=== PATIENT | male | born 1960 | race Hispanic/Latino ===

== ENCOUNTER 2020-12-18 23:32 | Emergency (ER) | payer MEDICARE, SELFPAY ==
[2020-12-19] MEDS ORDERED: hydrOXYzine Pamoate 25 mg Capsule ONE (00:36)
[2020-12-19] MEDS ORDERED: Aspirin Chewable 81 MG TAB ONE (00:36)
[2020-12-19] MEDS ORDERED: Ondansetron ODT 4 MG TAB ONE (00:36)
[2020-12-19 00:50] LABS: #Basophils 0.1 thou/uL (0.0-0.2); #Lymphocytes 2.2 thou/uL (1.20-3.40); #Monocytes 0.8 thou/uL (0.11-0.59); #Neutrophils 2.8 thou/uL (1.40-6.50); %Basophils 1.1 % (0.0-1.0); %Eosinophils 0.4 % (0.0-10.0); %Lymphocytes 36.8 % (21.0-51.0); %Monocytes 13.6 % (0.0-10.0); %Neutrophils 48.1 % (42.0-75.0); Hemoglobin 12.7 g/dL (14.0-18.0); Mean Corpuscular HGB CONC 32.9 g/dL (32.0-36.0); Mean Corpuscular Hemoglobin 27.8 pg (27.0-31.0); Mean Corpuscular Volume 84.6 fL (78.0-98.0); Mean Platelet Volume 6.8 fL (7.4-10.4); Platelet Count 302 thou/uL (130-400); RBC Distribution Width 15.7 % (11.5-14.5); Red Blood Cell (RBC) Count 4.56 mill/uL (4.70-6.10); White Blood Cell (WBC) Count 5.8 thou/uL (4.8-10.8)
[2020-12-19 01:11] LABS: ALT (SGPT) 19 U/L (8-55); AST (SGOT) 32 U/L (5-34); Alkaline Phosphatase 106 U/L (40-110); Anion Gap 15 mmol/L (10-20); BUN (Urea Nitrogen) 8 mg/dL (8.4-25.7); Bilirubin, Total 0.6 mg/dL (0.2-1.2); Calc. Creatinine Clearance 0 mL/min (70-130); Calcium 8.3 mg/dL (7.8-10.44); Carbon Dioxide 24 mmol/L (22-29); Chloride 102 mmol/L (98-107); Globulin 3.5 g/dL (2.4-3.5); Glucose 110 mg/dL (70-105); Potassium 3.6 mmol/L (3.5-5.1); Protein, Total 7.5 g/dL (6.0-8.3); Sodium 137 mmol/L (136-145)
== END 2020-12-19 01:38 | disposition home or self-care (01) ==
LOC: ERS 23:32
DX: F41.9 Anxiety disorder, unspecified (principal); B20 Human immunodeficiency virus [HIV] disease; E78.5 Hyperlipidemia, unspecified; I10 Essential (primary) hypertension; F17.210 Nicotine dependence, cigarettes, uncomplicated
CPT/HCPCS: 36415; 71045; 80053; 84484; 85025; 93005; Q0162; Q0177

== ENCOUNTER 2020-12-19 10:43 | Emergency (ER) | payer MEDICARE ==
[2020-12-19] MEDS ORDERED: Ondansetron ODT 4 MG TAB ONE (10:59)
[2020-12-19] MEDS ORDERED: Lorazepam 1 MG TAB ONE (11:25)
== END 2020-12-19 13:00 | disposition home or self-care (01) ==
LOC: ERS 10:43
DX: F41.9 Anxiety disorder, unspecified (principal); Z60.9 Problem related to social environment, unspecified; B20 Human immunodeficiency virus [HIV] disease; E78.5 Hyperlipidemia, unspecified; I10 Essential (primary) hypertension; F17.210 Nicotine dependence, cigarettes, uncomplicated; Z79.899 Other long term (current) drug therapy
CPT/HCPCS: 36415; 71045; 80053; 84484; 85025; 93005; 99283; Q0162; Q0177

== ENCOUNTER 2022-04-21 07:58 | Outpatient (CLI) | payer MEDICARE | END 2022-04-21 07:59 | disposition home or self-care (01) | LOC: BICRAD 07:58 | PROVIDERS: ATTEND Family Medicine | DX: S42.001D Fracture of unspecified part of right clavicle, subsequent encounter for fracture with routine healing (principal); Z87.81 Personal history of (healed) traumatic fracture ==

== ENCOUNTER 2022-04-30 14:37 | Emergency (ER) | payer MEDICARE ==
[2022-04-30] MEDS ORDERED: Ondansetron ODT 4 MG TAB ONE (15:31)
[2022-04-30] MEDS ORDERED: Lorazepam 2 MG/ML VIAL ONE (15:31)
== END 2022-04-30 15:49 | disposition home or self-care (01) ==
LOC: ERS 14:37
DX: F41.9 Anxiety disorder, unspecified (principal); R11.0 Nausea; B20 Human immunodeficiency virus [HIV] disease; I10 Essential (primary) hypertension; F17.210 Nicotine dependence, cigarettes, uncomplicated; E78.5 Hyperlipidemia, unspecified; Z79.899 Other long term (current) drug therapy
CPT/HCPCS: 96372; 99283; J2060; Q0162

== ENCOUNTER 2022-06-04 07:10 | Day surgery (SDC) | payer MEDICARE ==
[2022-06-04] MEDS ORDERED: Ondansetron PF 4 MG/2 ML Vial ONE ×2 (07:33→11:15)
[2022-06-04] MEDS ORDERED: hydrOXYzine 25 MG TAB ONE (07:34)
[2022-06-04 07:48] LABS: #Eosinphils 0.2 thou/uL (0.0-0.7); #Lymphocytes 1.6 thou/uL (1.20-3.40); #Monocytes 0.8 thou/uL (0.11-0.59); #Neutrophils 8.2 thou/uL (1.40-6.50); %Basophils 0.3 % (0.0-1.0); %Eosinophils 1.9 % (0.0-10.0); %Lymphocytes 14.4 % (21.0-51.0); %Monocytes 7.3 % (0.0-10.0); Hemoglobin 14.8 g/dL (14.0-18.0); Mean Corpuscular HGB CONC 32.7 g/dL (32.0-36.0); Mean Corpuscular Hemoglobin 33.9 pg (27.0-31.0); Mean Platelet Volume 6.9 fL (7.4-10.4); Platelet Count 254 thou/uL (130-400); RBC Distribution Width 12.1 % (11.5-14.5); Red Blood Cell (RBC) Count 4.35 mill/uL (4.70-6.10); White Blood Cell (WBC) Count 10.8 thou/uL (4.8-10.8)
[2022-06-04 08:06] LABS: ALT (SGPT) 12 U/L (8-55); AST (SGOT) 14 U/L (5-34); Albumin 3.6 g/dL (3.5-5.0); Alkaline Phosphatase 49 U/L (40-110); Anion Gap 10 mmol/L (10-20); BUN (Urea Nitrogen) 16 mg/dL (8.4-25.7); Bilirubin, Total 0.3 mg/dL (0.2-1.2); Calc. Creatinine Clearance 0 mL/min (70-130); Carbon Dioxide 31 mmol/L (22-29); Chloride 101 mmol/L (98-107); Estimated GFR 103; Globulin 2.5 g/dL (2.4-3.5); Glucose 105 mg/dL (70-105); Lipase 631 U/L (8-78); Protein, Total 6.1 g/dL (6.0-8.3); Sodium 138 mmol/L (136-145)
[2022-06-04] MEDS ORDERED: fentaNYL Citrate/PF 100 MCG/2 ML SYRINGE ONE (10:11)
[2022-06-04] MEDS ORDERED: Bupivacaine PF 0.5% 30 ML VIAL ONE (10:15)
[2022-06-04] MEDS ORDERED: Lidocaine 1% w/Epinephrine 1:100K 20 ML VIAL ONE (10:15)
[2022-06-04] MEDS ORDERED: Levofloxacin 500 mg/D5W 100 ml Premix Bag ONE (10:35)
[2022-06-04 11:08] LABS: SARS-CoV-2 NAA Rapid Test Not Detected (NotDetected)
[2022-06-04] MEDS ORDERED: Iopamidol 30 ML ONE ×2 (11:08→12:19)
[2022-06-04] MEDS ORDERED: Midazolam HCl 2 mg/2 ml Vial ONE (11:09)
[2022-06-04] MEDS ORDERED: Phenylephrine 10 MG/ML VIAL ONE (11:15)
[2022-06-04] MEDS ORDERED: Rocuronium Bromide 10 MG/ML (10ML VIAL) ONE (11:15)
[2022-06-04] MEDS ORDERED: Esmolol 100 MG/10 ML VIAL ONE (11:15)
[2022-06-04] MEDS ORDERED: Ketorolac Tromethamine 30 MG/ML VIAL ONE (11:15)
[2022-06-04] MEDS ORDERED: Lidocaine 1% PF 5 ML VIAL ONE (11:15)
[2022-06-04] MEDS ORDERED: PROPOFOL 200 MG/20 ML VIAL ONE (11:15)
[2022-06-04] MEDS ORDERED: Naloxone HCl 0.4 mg/ml Vial ONE (12:56)
[2022-06-04] MEDS ORDERED: Iopamidol-370 76% 500 ML 1 ML ONE (13:27)
[2022-06-04] MEDS ORDERED: Fentanyl 100 MCG/2 ML VIAL ONE (13:51)
== END 2022-06-04 15:02 | disposition home or self-care (01) ==
LOC: ERS 07:10 → SDC/OP 11:15
PROVIDERS: ATTEND Specialist
PROC: 0FT44ZZ Resection of Gallbladder, Percutaneous Endoscopic Approach (ICD-10-PCS; principal; 2022-06-04)
DX: K80.12 Calculus of gallbladder with acute and chronic cholecystitis without obstruction (principal); K85.90 Acute pancreatitis without necrosis or infection, unspecified; F17.210 Nicotine dependence, cigarettes, uncomplicated; I10 Essential (primary) hypertension; Z20.822 Contact with and (suspected) exposure to COVID-19; Z21 Asymptomatic human immunodeficiency virus [HIV] infection status; Z88.2 Allergy status to sulfonamides
CPT/HCPCS: 47562; 71045; 74177; 76000; 76705; 80053; 83690; 84484; 85025; 93005; C1713; J1610; U0002; 88304; J1885; J1956; J2250; J2310; J2370; J2405; J2704; J3010; Q9967; S0020

== ENCOUNTER 2022-06-08 08:25 | Emergency (ER) | payer MEDICARE ==
[2022-06-08] MEDS ORDERED: Lorazepam 1 MG TAB ONE ×2 (08:58→10:51)
[2022-06-08 09:06] LABS: #Eosinphils 0.1 thou/uL (0.0-0.7); #Lymphocytes 1.8 thou/uL (1.20-3.40); #Monocytes 0.9 thou/uL (0.11-0.59); #Neutrophils 7.9 thou/uL (1.40-6.50); %Basophils 0.1 % (0.0-1.0); %Eosinophils 1.3 % (0.0-10.0); %Lymphocytes 16.4 % (21.0-51.0); %Monocytes 8.7 % (0.0-10.0); %Neutrophils 73.5 % (42.0-75.0); Hemoglobin 12.9 g/dL (14.0-18.0); Mean Corpuscular Hemoglobin 33.7 pg (27.0-31.0); Mean Platelet Volume 7.2 fL (7.4-10.4); Platelet Count 231 thou/uL (130-400); RBC Distribution Width 12.2 % (11.5-14.5); Red Blood Cell (RBC) Count 3.82 mill/uL (4.70-6.10); White Blood Cell (WBC) Count 10.7 thou/uL (4.8-10.8)
[2022-06-08 09:14] LABS: ALT (SGPT) 36 U/L (8-55); AST (SGOT) 24 U/L (5-34); Albumin 3.6 g/dL (3.5-5.0); Alkaline Phosphatase 51 U/L (40-110); Anion Gap 13 mmol/L (10-20); BUN (Urea Nitrogen) 12 mg/dL (8.4-25.7); Bilirubin, Total 0.6 mg/dL (0.2-1.2); Calc. Creatinine Clearance 0 mL/min (70-130); Calcium 9.2 mg/dL (7.8-10.44); Carbon Dioxide 31 mmol/L (22-29); Chloride 97 mmol/L (98-107); Estimated GFR 103; Globulin 2.9 g/dL (2.4-3.5); Glucose 92 mg/dL (70-105); Lipase 16 U/L (8-78); Potassium 4.2 mmol/L (3.5-5.1); Protein, Total 6.5 g/dL (6.0-8.3); Sodium 137 mmol/L (136-145)
[2022-06-08 10:02] LABS: SARS-CoV-2 NAA Rapid Test Not Detected (NotDetected)
[2022-06-08] MEDS ORDERED: Ketorolac Tromethamine 30 MG/ML VIAL ONE (10:51)
[2022-06-08] MEDS ORDERED: Iopamidol-370 76% 500 ML 1 ML ONE (11:27)
== END 2022-06-08 12:10 | disposition home or self-care (01) ==
LOC: ERS 08:25
DX: J02.9 Acute pharyngitis, unspecified (principal); B37.0 Candidal stomatitis; R53.81 Other malaise; I10 Essential (primary) hypertension; E78.5 Hyperlipidemia, unspecified; F17.210 Nicotine dependence, cigarettes, uncomplicated; Z21 Asymptomatic human immunodeficiency virus [HIV] infection status; Z20.822 Contact with and (suspected) exposure to COVID-19; Z79.899 Other long term (current) drug therapy
CPT/HCPCS: 0240U; 70450; 70491; 71045; 80053; 83605; 83690; 84484; 85025; 87040; 87081; 87430; 93005; 36415; 96374; J1885; Q9967

== ENCOUNTER 2022-06-13 12:20 | Emergency (ER) | payer MEDICARE ==
[2022-06-13 13:04] LABS: #Eosinphils 0.1 thou/uL (0.0-0.7); #Lymphocytes 1.8 thou/uL (1.20-3.40); #Monocytes 0.7 thou/uL (0.11-0.59); #Neutrophils 6.7 thou/uL (1.40-6.50); %Basophils 0.3 % (0.0-1.0); %Eosinophils 0.8 % (0.0-10.0); %Lymphocytes 19.9 % (21.0-51.0); Hemoglobin 14.5 g/dL (14.0-18.0); Mean Corpuscular HGB CONC 33.5 g/dL (32.0-36.0); Mean Corpuscular Hemoglobin 34.4 pg (27.0-31.0); Mean Platelet Volume 6.8 fL (7.4-10.4); Platelet Count 283 thou/uL (130-400); Red Blood Cell (RBC) Count 4.22 mill/uL (4.70-6.10); White Blood Cell (WBC) Count 9.3 thou/uL (4.8-10.8)
[2022-06-13 13:19] LABS: ALT (SGPT) 15 U/L (8-55); AST (SGOT) 14 U/L (5-34); Alkaline Phosphatase 63 U/L (40-110); Anion Gap 14 mmol/L (10-20); BUN (Urea Nitrogen) 12 mg/dL (8.4-25.7); Bilirubin, Total 0.3 mg/dL (0.2-1.2); Calc. Creatinine Clearance 0 mL/min (70-130); Carbon Dioxide 25 mmol/L (22-29); Chloride 99 mmol/L (98-107); Estimated GFR 104; Globulin 3.1 g/dL (2.4-3.5); Glucose 95 mg/dL (70-105); Lipase 34 U/L (8-78); Potassium 4.2 mmol/L (3.5-5.1); Protein, Total 7.1 g/dL (6.0-8.3); Sodium 134 mmol/L (136-145)
[2022-06-13] MEDS ORDERED: Midazolam HCl 2 mg/2 ml Vial ONE (14:16)
[2022-06-13] MEDS ORDERED: Ketorolac Tromethamine 30 MG/ML VIAL ONE (14:16)
[2022-06-13 14:36] LABS: Magnesium 1.7 mg/dL (1.6-2.6)
[2022-06-13] MEDS ORDERED: Ondansetron ODT 4 MG TAB ONE (14:58)
== END 2022-06-13 15:00 | disposition home or self-care (01) ==
LOC: ERS 12:20
DX: R11.2 Nausea with vomiting, unspecified (principal); F41.9 Anxiety disorder, unspecified; G89.29 Other chronic pain; R07.89 Other chest pain; I10 Essential (primary) hypertension; E78.5 Hyperlipidemia, unspecified; F17.210 Nicotine dependence, cigarettes, uncomplicated; Z21 Asymptomatic human immunodeficiency virus [HIV] infection status; Z79.899 Other long term (current) drug therapy
CPT/HCPCS: 71045; 80053; 83690; 83735; 84484; 85025; 93005; 96374; 96375; J1885; J2250; Q0162

== ENCOUNTER 2022-07-05 16:17 | Emergency (ER) | payer MEDICARE ==
[~2022-07-05 16:17] MED LIST: Iopamidol 370 76% 100 ML VIAL ONE
[2022-07-05 17:00] LABS: #Eosinphils 0.3 thou/uL (0.0-0.7); #Monocytes 0.7 thou/uL (0.11-0.59); #Neutrophils 3.2 thou/uL (1.40-6.50); %Basophils 0.7 % (0.0-1.0); %Eosinophils 4.6 % (0.0-10.0); %Neutrophils 51.6 % (42.0-75.0); Hemoglobin 12.7 g/dL (14.0-18.0); Mean Corpuscular HGB CONC 32.3 g/dL (32.0-36.0); Mean Corpuscular Hemoglobin 33.3 pg (27.0-31.0); Mean Platelet Volume 6.7 fL (7.4-10.4); Platelet Count 237 thou/uL (130-400); Red Blood Cell (RBC) Count 3.81 mill/uL (4.70-6.10); White Blood Cell (WBC) Count 6.2 thou/uL (4.8-10.8)
[2022-07-05] MEDS ORDERED: Ondansetron PF 4 MG/2 ML Vial ONE ×2 (17:03→22:57)
[2022-07-05] MEDS ORDERED: Aspirin Chewable 81 MG TAB ONE (17:03)
[2022-07-05 17:20] LABS: ALT (SGPT) 7 U/L (8-55); AST (SGOT) 12 U/L (5-34); Albumin 3.8 g/dL (3.5-5.0); Alkaline Phosphatase 56 U/L (40-110); Anion Gap 13 mmol/L (10-20); BUN (Urea Nitrogen) 20 mg/dL (8.4-25.7); Bilirubin, Total 0.2 mg/dL (0.2-1.2); Calc. Creatinine Clearance 0 mL/min (70-130); Carbon Dioxide 30 mmol/L (22-29); Chloride 97 mmol/L (98-107); Estimated GFR 95; Globulin 2.6 g/dL (2.4-3.5); Glucose 115 mg/dL (70-105); Lipase 110 U/L (8-78); Protein, Total 6.4 g/dL (6.0-8.3); Sodium 136 mmol/L (136-145)
[2022-07-05] MEDS ORDERED: hydrOXYzine 25 MG TAB ONE (18:31)
== END 2022-07-05 23:02 | disposition home or self-care (01) ==
LOC: ERS 16:17
DX: K44.9 Diaphragmatic hernia without obstruction or gangrene (principal); F41.9 Anxiety disorder, unspecified; I10 Essential (primary) hypertension; E78.5 Hyperlipidemia, unspecified; F17.210 Nicotine dependence, cigarettes, uncomplicated; Z21 Asymptomatic human immunodeficiency virus [HIV] infection status; Z79.899 Other long term (current) drug therapy
CPT/HCPCS: 36415; 71045; 74177; 80053; 83690; 84484; 85025; 93005; 94760; 96374; 96376; J2405; Q9967

== ENCOUNTER 2022-07-18 08:37 | Emergency (ER) | payer MEDICARE ==
[2022-07-18 09:48] LABS: #Lymphocytes 1.1 thou/uL (1.20-3.40); #Monocytes 0.4 thou/uL (0.11-0.59); #Neutrophils 9.2 thou/uL (1.40-6.50); %Basophils 0.3 % (0.0-1.0); %Eosinophils 0.1 % (0.0-10.0); %Lymphocytes 10.5 % (21.0-51.0); %Monocytes 4.1 % (0.0-10.0); Hemoglobin 14.2 g/dL (14.0-18.0); Mean Corpuscular Hemoglobin 34.6 pg (27.0-31.0); Mean Platelet Volume 6.9 fL (7.4-10.4); Platelet Count 322 thou/uL (130-400); RBC Distribution Width 11.9 % (11.5-14.5); Red Blood Cell (RBC) Count 4.11 mill/uL (4.70-6.10); White Blood Cell (WBC) Count 10.8 thou/uL (4.8-10.8)
[2022-07-18] MEDS ORDERED: Lorazepam 1 MG TAB ONE (10:00)
[2022-07-18 10:01] LABS: ALT (SGPT) 11 U/L (8-55); AST (SGOT) 19 U/L (5-34); Acetaminophen Less than 10.0 mcg/mL (10.0-30.0); Albumin 4.5 g/dL (3.5-5.0); Alcohol Less than 10 mg/dL (Less than 10); Alkaline Phosphatase 54 U/L (40-110); Anion Gap 19 mmol/L (10-20); BUN (Urea Nitrogen) 8 mg/dL (8.4-25.7); Bilirubin, Total 0.3 mg/dL (0.2-1.2); Calc. Creatinine Clearance 0 mL/min (70-130); Calcium 9.5 mg/dL (7.8-10.44); Carbon Dioxide 22 mmol/L (22-29); Chloride 93 mmol/L (98-107); Estimated GFR 87; Globulin 3.4 g/dL (2.4-3.5); Glucose 112 mg/dL (70-105); Lipase 33 U/L (8-78); Magnesium 1.6 mg/dL (1.6-2.6); Potassium 3.1 mmol/L (3.5-5.1); Protein, Total 7.9 g/dL (6.0-8.3); Salicylate 10.9 mg/dL (15.0-30.0); Sodium 131 mmol/L (136-145)
[2022-07-18] MEDS ORDERED: Aspirin Chewable 81 MG TAB ONE (10:01)
[2022-07-18] MEDS ORDERED: Ondansetron PF 4 MG/2 ML Vial ONE (10:33)
[2022-07-18 10:58] LABS: Bacteria/HPF None Seen HPF (None Seen); Bilirubin Negative (Negative); Blood, Urine Negative (Negative); Clarity Clear (Clear); Glucose, Urine (Dipstick) Normal (Negative); Ketone, Urine Negative (Negative); Leukocyte Negative Leu/uL (Negative); Nitrite Negative (Negative); Protein, Urine (Dipstick) Negative (Neg-Trace); RBC/HPF None Seen HPF (0-3); Specific Gravity, Urine 1.014 (1.002-1.036); Squamous Epithelial None Seen HPF (0-3); Urobilinogen Normal mg/dL (Less than 2); WBC/HPF 0-3 HPF (0-3)
[2022-07-18 11:04] LABS: Amphetamine Not Detected (NotDetected); Barbiturates Screen Not Detected (NotDetected); Benzodiazepine Screen Not Detected (NotDetected); Cocaine Metabolite Screen Not Detected (NotDetected); Methadone Not Detected (NotDetected); Methamphetamine Not Detected (NotDetected); Opiate Screen Not Detected (NotDetected); Oxycodone Screen Not Detected (NotDetected); Phencyclidine (PCP) Not Detected (NotDetected); THC/Cannabinoid Screen Not Detected (NotDetected); Tricyclic Screen Not Detected (NotDetected)
[2022-07-18] MEDS ORDERED: Prochlorperazine Maleate 5 MG TAB ONE ×2 (12:48→12:50)
== END 2022-07-18 14:34 | disposition home or self-care (01) ==
LOC: ERS 08:37
DX: F41.9 Anxiety disorder, unspecified (principal); R11.2 Nausea with vomiting, unspecified; R07.9 Chest pain, unspecified; E78.5 Hyperlipidemia, unspecified; B20 Human immunodeficiency virus [HIV] disease; I10 Essential (primary) hypertension; F17.210 Nicotine dependence, cigarettes, uncomplicated; Z79.899 Other long term (current) drug therapy
CPT/HCPCS: 80053; 80306; 80307; 81001; 83690; 83735; 83880; 84484; 85025; 93005; 96361; 96374; J2405; Q0164

== ENCOUNTER 2022-07-20 17:37 | Emergency (ER) | payer MEDICARE ==
[2022-07-20] MEDS ORDERED: Diazepam 5 MG TAB ONE (18:22)
[2022-07-20] MEDS ORDERED: Ondansetron ODT 4 MG TAB ONE (18:22)
[2022-07-20 18:27] LABS: #Lymphocytes 1.8 thou/uL (1.20-3.40); #Monocytes 0.8 thou/uL (0.11-0.59); #Neutrophils 5.5 thou/uL (1.40-6.50); %Basophils 0.1 % (0.0-1.0); %Eosinophils 0.4 % (0.0-10.0); %Monocytes 9.3 % (0.0-10.0); %Neutrophils 68.3 % (42.0-75.0); Hemoglobin 13.7 g/dL (14.0-18.0); Mean Corpuscular HGB CONC 34.8 g/dL (32.0-36.0); Mean Corpuscular Hemoglobin 34.4 pg (27.0-31.0); Mean Corpuscular Volume 98.9 fL (78.0-98.0); Mean Platelet Volume 6.4 fL (7.4-10.4); Platelet Count 358 thou/uL (130-400); RBC Distribution Width 11.9 % (11.5-14.5); Red Blood Cell (RBC) Count 3.97 mill/uL (4.70-6.10); White Blood Cell (WBC) Count 8.1 thou/uL (4.8-10.8)
[2022-07-20 18:47] LABS: ALT (SGPT) 11 U/L (8-55); AST (SGOT) 20 U/L (5-34); Alkaline Phosphatase 52 U/L (40-110); Anion Gap 18 mmol/L (10-20); BUN (Urea Nitrogen) 12 mg/dL (8.4-25.7); Bilirubin, Total 0.4 mg/dL (0.2-1.2); Calc. Creatinine Clearance 0 mL/min (70-130); Calcium 9.1 mg/dL (7.8-10.44); Carbon Dioxide 21 mmol/L (22-29); Chloride 93 mmol/L (98-107); Estimated GFR 101; Globulin 3.1 g/dL (2.4-3.5); Glucose 93 mg/dL (70-105); Lipase 21 U/L (8-78); Potassium 3.2 mmol/L (3.5-5.1); Protein, Total 7.1 g/dL (6.0-8.3); Sodium 129 mmol/L (136-145)
== END 2022-07-20 19:50 | disposition home or self-care (01) ==
LOC: ERS 17:37
DX: F41.9 Anxiety disorder, unspecified (principal); E86.1 Hypovolemia; E86.0 Dehydration; F17.210 Nicotine dependence, cigarettes, uncomplicated
CPT/HCPCS: 36415; 71045; 80053; 83690; 84443; 84484; 93005; 96360; Q0162

== ENCOUNTER 2022-07-27 10:23 | Emergency (ER) | payer MEDICARE ==
[~2022-07-27 10:23] MED LIST changes: -Iopamidol 370 76% 100 ML VIAL ONE; +Iopamidol-370 76% 500 ML 1 ML ONE
[2022-07-27] MEDS ORDERED: Lorazepam 1 MG TAB ONE (10:52)
[2022-07-27 11:20] LABS: #Eosinphils 0.1 thou/uL (0.0-0.7); #Lymphocytes 1.3 thou/uL (1.20-3.40); #Monocytes 0.7 thou/uL (0.11-0.59); #Neutrophils 5.1 thou/uL (1.40-6.50); %Basophils 0.2 % (0.0-1.0); %Eosinophils 0.8 % (0.0-10.0); %Lymphocytes 18.4 % (21.0-51.0); %Monocytes 10.2 % (0.0-10.0); %Neutrophils 70.4 % (42.0-75.0); Hemoglobin 14.5 g/dL (14.0-18.0); Mean Corpuscular Hemoglobin 33.9 pg (27.0-31.0); Mean Corpuscular Volume 99.9 fL (78.0-98.0); Mean Platelet Volume 6.3 fL (7.4-10.4); Platelet Count 361 thou/uL (130-400); RBC Distribution Width 11.6 % (11.5-14.5); Red Blood Cell (RBC) Count 4.28 mill/uL (4.70-6.10); White Blood Cell (WBC) Count 7.3 thou/uL (4.8-10.8)
[2022-07-27 11:37] LABS: ALT (SGPT) 11 U/L (8-55); AST (SGOT) 22 U/L (5-34); Albumin 4.2 g/dL (3.5-5.0); Alkaline Phosphatase 58 U/L (40-110); Anion Gap 17 mmol/L (10-20); BUN (Urea Nitrogen) 7 mg/dL (8.4-25.7); Bilirubin, Total 0.9 mg/dL (0.2-1.2); Calc. Creatinine Clearance 0 mL/min (70-130); Calcium 9.2 mg/dL (7.8-10.44); Carbon Dioxide 24 mmol/L (22-29); Chloride 91 mmol/L (98-107); Estimated GFR 102; Globulin 2.8 g/dL (2.4-3.5); Glucose 118 mg/dL (70-105); Lipase 18 U/L (8-78); Potassium 3.9 mmol/L (3.5-5.1); Sodium 128 mmol/L (136-145)
== END 2022-07-27 12:35 | disposition home or self-care (01) ==
LOC: ERS 10:23
DX: E87.1 Hypo-osmolality and hyponatremia (principal); R11.2 Nausea with vomiting, unspecified; R10.819 Abdominal tenderness, unspecified site; I10 Essential (primary) hypertension
CPT/HCPCS: 71045; 74177; 80053; 83690; 83880; 84484; 85025; 93005; Q9967

== ENCOUNTER 2022-07-30 18:16 | Emergency (ER) | payer MEDICARE ==
[2022-07-30] MEDS ORDERED: Lorazepam 1 MG TAB ONE (18:37)
[2022-07-30 18:59] LABS: #Basophils 0.1 thou/uL (0.0-0.2); #Eosinphils 0.2 thou/uL (0.0-0.7); #Lymphocytes 1.4 thou/uL (1.20-3.40); #Monocytes 0.8 thou/uL (0.11-0.59); #Neutrophils 3.7 thou/uL (1.40-6.50); %Basophils 0.9 % (0.0-1.0); %Eosinophils 2.7 % (0.0-10.0); %Lymphocytes 23.1 % (21.0-51.0); %Monocytes 12.5 % (0.0-10.0); %Neutrophils 60.8 % (42.0-75.0); Hemoglobin 14.1 g/dL (14.0-18.0); Mean Corpuscular HGB CONC 33.6 g/dL (32.0-36.0); Mean Platelet Volume 6.5 fL (7.4-10.4); Platelet Count 314 thou/uL (130-400); RBC Distribution Width 11.7 % (11.5-14.5); Red Blood Cell (RBC) Count 4.16 mill/uL (4.70-6.10); White Blood Cell (WBC) Count 6.1 thou/uL (4.8-10.8)
[2022-07-30] MEDS ORDERED: Ondansetron PF 4 MG/2 ML Vial ONE (19:03)
[2022-07-30 19:14] LABS: ALT (SGPT) 10 U/L (8-55); AST (SGOT) 13 U/L (5-34); Albumin 4.1 g/dL (3.5-5.0); Alkaline Phosphatase 71 U/L (40-110); Anion Gap 14 mmol/L (10-20); BUN (Urea Nitrogen) 9 mg/dL (8.4-25.7); Bilirubin, Total 0.4 mg/dL (0.2-1.2); CK (CPK) 95 U/L (30-200); Calc. Creatinine Clearance 0 mL/min (70-130); Calcium 9.6 mg/dL (7.8-10.44); Carbon Dioxide 29 mmol/L (22-29); Chloride 97 mmol/L (98-107); Estimated GFR 98; Globulin 2.8 g/dL (2.4-3.5); Glucose 105 mg/dL (70-105); Lipase 66 U/L (8-78); Potassium 3.5 mmol/L (3.5-5.1); Protein, Total 6.9 g/dL (6.0-8.3); Sodium 136 mmol/L (136-145)
[2022-07-30 19:50] LABS: Bilirubin Negative (Negative); Blood, Urine Negative (Negative); Clarity Clear (Clear); Glucose, Urine (Dipstick) Normal (Negative); Ketone, Urine Negative (Negative); Leukocyte Negative Leu/uL (Negative); Nitrite Negative (Negative); Protein, Urine (Dipstick) Negative (Neg-Trace); Specific Gravity, Urine 1.013 (1.002-1.036)
== END 2022-07-30 20:09 | disposition home or self-care (01) ==
LOC: ERS 18:16
DX: R11.2 Nausea with vomiting, unspecified (principal); B20 Human immunodeficiency virus [HIV] disease; E78.5 Hyperlipidemia, unspecified; I10 Essential (primary) hypertension; F17.210 Nicotine dependence, cigarettes, uncomplicated; Z79.899 Other long term (current) drug therapy
CPT/HCPCS: 80053; 81003; 82550; 83690; 84484; 85025; 93005; 96361; 96374; J2405

== ENCOUNTER 2022-08-11 11:16 | Emergency (ER) | payer MEDICARE ==
[2022-08-11 12:03] LABS: #Basophils 0.1 thou/uL (0.0-0.2); #Lymphocytes 1.2 thou/uL (1.20-3.40); #Monocytes 0.6 thou/uL (0.11-0.59); #Neutrophils 3.1 thou/uL (1.40-6.50); %Basophils 1.5 % (0.0-1.0); %Eosinophils 0.7 % (0.0-10.0); %Lymphocytes 23.9 % (21.0-51.0); %Monocytes 11.3 % (0.0-10.0); %Neutrophils 62.5 % (42.0-75.0); Hemoglobin 10.4 g/dL (14.0-18.0); Mean Corpuscular HGB CONC 33.6 g/dL (32.0-36.0); Mean Corpuscular Hemoglobin 33.5 pg (27.0-31.0); Mean Platelet Volume 6.6 fL (7.4-10.4); Platelet Count 202 thou/uL (130-400); RBC Distribution Width 11.5 % (11.5-14.5); White Blood Cell (WBC) Count 4.9 thou/uL (4.8-10.8)
[2022-08-11 12:20] LABS: ALT (SGPT) 19 U/L (8-55); AST (SGOT) 28 U/L (5-34); Albumin 4.5 g/dL (3.5-5.0); Alkaline Phosphatase 68 U/L (40-110); Anion Gap 19 mmol/L (10-20); BUN (Urea Nitrogen) 23 mg/dL (8.4-25.7); Bilirubin, Total 1.3 mg/dL (0.2-1.2); Calc. Creatinine Clearance 0 mL/min (70-130); Calcium 10.2 mg/dL (7.8-10.44); Carbon Dioxide 23 mmol/L (22-29); Chloride 90 mmol/L (98-107); Estimated GFR 79; Globulin 3.7 g/dL (2.4-3.5); Glucose 92 mg/dL (70-105); Lipase 77 U/L (8-78); Potassium 3.7 mmol/L (3.5-5.1); Protein, Total 8.2 g/dL (6.0-8.3); Sodium 128 mmol/L (136-145)
[2022-08-11] MEDS ORDERED: Ondansetron PF 4 MG/2 ML Vial ONE (14:03)
== END 2022-08-11 14:06 | disposition home or self-care (01) ==
LOC: ERS 11:16
DX: R07.89 Other chest pain (principal); F41.9 Anxiety disorder, unspecified; R11.2 Nausea with vomiting, unspecified; I10 Essential (primary) hypertension; E78.5 Hyperlipidemia, unspecified; F17.210 Nicotine dependence, cigarettes, uncomplicated
CPT/HCPCS: 36415; 71045; 80053; 83690; 84484; 85025; 93005; 96374; J2405

== ENCOUNTER 2022-08-25 06:14 | Emergency (ER) | payer MEDICARE ==
[2022-08-25 06:56] LABS: #Eosinphils 0.2 thou/uL (0.0-0.7); #Lymphocytes 1.6 thou/uL (1.20-3.40); #Monocytes 0.5 thou/uL (0.11-0.59); #Neutrophils 3.4 thou/uL (1.40-6.50); %Basophils 0.3 % (0.0-1.0); %Eosinophils 3.2 % (0.0-10.0); %Lymphocytes 28.1 % (21.0-51.0); %Monocytes 9.5 % (0.0-10.0); %Neutrophils 58.9 % (42.0-75.0); Hemoglobin 14.1 g/dL (14.0-18.0); Mean Corpuscular Hemoglobin 33.8 pg (27.0-31.0); Mean Platelet Volume 6.2 fL (7.4-10.4); Platelet Count 361 thou/uL (130-400); RBC Distribution Width 11.5 % (11.5-14.5); Red Blood Cell (RBC) Count 4.16 mill/uL (4.70-6.10); White Blood Cell (WBC) Count 5.7 thou/uL (4.8-10.8)
[2022-08-25] MEDS ORDERED: Aspirin 325 MG TAB ONE (07:02)
[2022-08-25] MEDS ORDERED: hydrOXYzine Pamoate 25 mg Capsule ONE (07:02)
[2022-08-25] MEDS ORDERED: Lidocaine Viscous Sol 2% 15 ml UD Cup ONE (07:02)
[2022-08-25] MEDS ORDERED: Mag-Al 1200 mg/1200 mg/30 ML UDCUP ONE (07:02)
[2022-08-25 07:18] LABS: ALT (SGPT) 9 U/L (8-55); AST (SGOT) 13 U/L (5-34); Albumin 3.8 g/dL (3.5-5.0); Alkaline Phosphatase 59 U/L (40-110); Anion Gap 11 mmol/L (10-20); BUN (Urea Nitrogen) 9 mg/dL (8.4-25.7); Bilirubin, Total 0.5 mg/dL (0.2-1.2); Calc. Creatinine Clearance 0 mL/min (70-130); Calcium 9.5 mg/dL (7.8-10.44); Carbon Dioxide 29 mmol/L (22-29); Chloride 101 mmol/L (98-107); Estimated GFR 101; Globulin 2.7 g/dL (2.4-3.5); Glucose 96 mg/dL (70-105); Lipase 52 U/L (8-78); Potassium 3.9 mmol/L (3.5-5.1); Protein, Total 6.5 g/dL (6.0-8.3); Sodium 137 mmol/L (136-145)
== END 2022-08-25 07:53 | disposition left against medical advice (07) ==
LOC: ERS 06:14
DX: R94.31 Abnormal electrocardiogram [ECG] [EKG] (principal); E78.5 Hyperlipidemia, unspecified; I10 Essential (primary) hypertension; F17.210 Nicotine dependence, cigarettes, uncomplicated; Z79.899 Other long term (current) drug therapy
CPT/HCPCS: 36415; 71045; 80053; 83690; 84484; 85025; 93005; Q0177

== ENCOUNTER 2023-02-20 08:46 | Emergency (ER) | payer MEDICARE, MEDICAID ==
[2023-02-20] MEDS ORDERED: LORazepam 2 MG/ML SYR.(CARPUJECT) ONE (09:55)
[2023-02-20 10:32] LABS: #Eosinphils 0.2 thou/uL (0.0-0.7); #Monocytes 0.6 thou/uL (0.11-0.59); #Neutrophils 2.5 thou/uL (1.40-6.50); %Basophils 0.7 % (0.0-1.0); %Eosinophils 4.5 % (0.0-10.0); %Lymphocytes 22.3 % (21.0-51.0); %Monocytes 13.6 % (0.0-10.0); %Neutrophils 58.9 % (42.0-75.0); Hemoglobin 14.1 g/dL (14.0-18.0); Mean Corpuscular HGB CONC 34.1 g/dL (32.0-36.0); Mean Corpuscular Hemoglobin 33.1 pg (27.0-31.0); Platelet Count 226 10x3/uL (130-400); RBC Distribution Width 11.7 % (11.5-14.5); Red Blood Cell (RBC) Count 4.25 mill/uL (4.70-6.10); White Blood Cell (WBC) Count 4.3 10x3/uL (4.8-10.8)
[2023-02-20 10:55] LABS: ALT (SGPT) 22 U/L (8-55); AST (SGOT) 30 U/L (5-34); Albumin 3.8 g/dL (3.4-4.8); Alkaline Phosphatase 82 U/L (40-110); Anion Gap 10 mmol/L (10-20); BUN (Urea Nitrogen) 9 mg/dL (8.4-25.7); Bilirubin, Total 0.2 mg/dL (0.2-1.2); Calc. Creatinine Clearance 0 mL/min (70-130); Calcium 9.3 mg/dL (7.8-10.44); Carbon Dioxide 28 mmol/L (23-31); Chloride 101 mmol/L (98-107); Estimated GFR 98; Globulin 3.5 g/dL (2.4-3.5); Glucose 68 mg/dL (80-115); Lipase 188 U/L (8-78); Potassium 4.1 mmol/L (3.5-5.1); Protein, Total 7.3 g/dL (5.8-8.1); Sodium 135 mmol/L (136-145)
[2023-02-20] MEDS ORDERED: Promethazine HCl 25 MG in Sodium Chloride 0.9% 50 ML IVPB SCH (11:00)
[2023-02-20] MEDS ORDERED: Iopamidol-370 76% 500 ML MDV (1 ML CHARGE) ONE (14:48)
== END 2023-02-20 13:30 | disposition home or self-care (01) ==
LOC: ERS 08:46
DX: F41.9 Anxiety disorder, unspecified (principal); R11.0 Nausea; D72.819 Decreased white blood cell count, unspecified; E78.5 Hyperlipidemia, unspecified; I10 Essential (primary) hypertension; F17.210 Nicotine dependence, cigarettes, uncomplicated; Z79.899 Other long term (current) drug therapy
CPT/HCPCS: 71045; 73000; 74177; 80053; 83690; 84484; 85025; 93005; 96374; 96375; 99284; J2060; 36415; J2550; Q9967

== ENCOUNTER 2023-02-26 11:46 | Emergency (ER) | payer MEDICARE, MEDICAID ==
[2023-02-26 12:20] LABS: #Lymphocytes 0.9 thou/uL (1.20-3.40); #Monocytes 0.4 thou/uL (0.11-0.59); #Neutrophils 4.4 thou/uL (1.40-6.50); %Eosinophils 0.7 % (0.0-10.0); %Lymphocytes 15.5 % (21.0-51.0); %Monocytes 7.3 % (0.0-10.0); %Neutrophils 76.4 % (42.0-75.0); Hemoglobin 14.6 g/dL (14.0-18.0); Mean Corpuscular HGB CONC 33.4 g/dL (32.0-36.0); Mean Corpuscular Hemoglobin 32.6 pg (27.0-31.0); Mean Corpuscular Volume 97.4 fl (78.0-98.0); Mean Platelet Volume 6.9 fL (7.4-10.4); Platelet Count 243 10x3/uL (130-400); RBC Distribution Width 11.7 % (11.5-14.5); Red Blood Cell (RBC) Count 4.49 mill/uL (4.70-6.10); White Blood Cell (WBC) Count 5.8 10x3/uL (4.8-10.8)
[2023-02-26] MEDS ORDERED: Aspirin Chewable 81 MG TAB ONE (12:39)
[2023-02-26] MEDS ORDERED: Ondansetron PF 4 MG/2 ML Vial ONE ×2 (12:42→12:46)
[2023-02-26 12:45] LABS: Digoxin Less than 0.15 ng/mL (0.8-2.0)
[2023-02-26 12:48] LABS: ALT (SGPT) 13 U/L (8-55); AST (SGOT) 17 U/L (5-34); Albumin 3.9 g/dL (3.4-4.8); Alkaline Phosphatase 77 U/L (40-110); Anion Gap 12 mmol/L (10-20); BUN (Urea Nitrogen) 9 mg/dL (8.4-25.7); Bilirubin, Total 0.3 mg/dL (0.2-1.2); CK (CPK) 38 U/L (30-200); Calc. Creatinine Clearance 0 mL/min (70-130); Calcium 8.9 mg/dL (7.8-10.44); Carbon Dioxide 27 mmol/L (23-31); Chloride 100 mmol/L (98-107); Estimated GFR 82; Globulin 3.6 g/dL (2.4-3.5); Glucose 126 mg/dL (80-115); Lipase 24 U/L (8-78); Potassium 3.6 mmol/L (3.5-5.1); Protein, Total 7.5 g/dL (5.8-8.1); Sodium 135 mmol/L (136-145)
[2023-02-26] MEDS ORDERED: Lorazepam 1 MG TAB ONE (13:44)
[2023-02-26] MEDS ORDERED: Promethazine 25 MG TAB ONE (13:45)
== END 2023-02-26 15:06 | disposition home or self-care (01) ==
LOC: ERS 11:46
DX: F41.9 Anxiety disorder, unspecified (principal); I10 Essential (primary) hypertension; Z21 Asymptomatic human immunodeficiency virus [HIV] infection status; E78.5 Hyperlipidemia, unspecified; F17.210 Nicotine dependence, cigarettes, uncomplicated; Z79.899 Other long term (current) drug therapy
CPT/HCPCS: 36415; 71045; 80053; 80162; 82550; 83690; 84484; 85025; 93005; 96374; J2405; Q0169

== ENCOUNTER 2023-05-18 09:05 | Emergency (ER) | payer MEDICARE, MEDICAID ==
[2023-05-18] MEDS ORDERED: LORazepam 2 MG/ML SYR.(CARPUJECT) ONE (09:48)
[2023-05-18 09:53] LABS: #Eosinphils 0.2 thou/uL (0.0-0.7); #Monocytes 0.6 thou/uL (0.11-0.59); #Neutrophils 2.8 thou/uL (1.40-6.50); %Basophils 0.8 % (0.0-1.0); %Eosinophils 4.5 % (0.0-10.0); %Lymphocytes 26.2 % (21.0-51.0); %Monocytes 11.6 % (0.0-10.0); %Neutrophils 56.7 % (42.0-75.0); Hemoglobin 14.2 g/dL (14.0-18.0); Mean Corpuscular HGB CONC 34.3 g/dL (32.0-36.0); Mean Corpuscular Hemoglobin 32.7 pg (27.0-31.0); Mean Corpuscular Volume 95.4 fl (78.0-98.0); Mean Platelet Volume 8.9 fL (7.4-10.4); Platelet Count 273 10x3/uL (130-400); Red Blood Cell (RBC) Count 4.34 mill/uL (4.70-6.10); White Blood Cell (WBC) Count 4.9 10x3/uL (4.8-10.8)
[2023-05-18 10:15] LABS: ALT (SGPT) 15 U/L (8-55); AST (SGOT) 23 U/L (5-34); Alkaline Phosphatase 77 U/L (40-110); Anion Gap 13 mmol/L (10-20); BUN (Urea Nitrogen) 15 mg/dL (8.4-25.7); Bilirubin, Total 0.4 mg/dL (0.2-1.2); Calc. Creatinine Clearance 0 mL/min (70-130); Calcium 9.6 mg/dL (7.8-10.44); Carbon Dioxide 25 mmol/L (23-31); Chloride 97 mmol/L (98-107); Estimated GFR 81; Globulin 3.7 g/dL (2.4-3.5); Glucose 119 mg/dL (80-115); Lipase 135 U/L (8-78); Potassium 4.1 mmol/L (3.5-5.1); Protein, Total 7.7 g/dL (5.8-8.1); Sodium 131 mmol/L (136-145)
== END 2023-05-18 10:41 | disposition home or self-care (01) ==
LOC: ERS 09:05
DX: K52.9 Noninfective gastroenteritis and colitis, unspecified (principal); K21.9 Gastro-esophageal reflux disease without esophagitis; I10 Essential (primary) hypertension; E78.5 Hyperlipidemia, unspecified; Z79.899 Other long term (current) drug therapy
CPT/HCPCS: 80053; 83690; 84484; 85025; 93005; J2060; 96361; 96374

== ENCOUNTER 2023-09-01 10:31 | Observation (INO) | payer MEDICARE, MEDICAID ==
[2023-09-01 11:05] LABS: #Basophils 0.1 thou/uL (0.0-0.2); #Eosinphils 0.3 thou/uL (0.0-0.7); #Monocytes 0.6 thou/uL (0.11-0.59); %Lymphocytes 21.2 % (21.0-51.0); %Monocytes 12.7 % (0.0-10.0); %Neutrophils 59.7 % (42.0-75.0); Hematocrit 40.8 % (42.0-52.0); Hemoglobin 14.2 g/dL (14.0-18.0); Mean Corpuscular HGB CONC 34.8 g/dL (32.0-36.0); Mean Corpuscular Hemoglobin 34.4 pg (27.0-31.0); Mean Corpuscular Volume 98.8 fl (78.0-98.0); Platelet Count 265 10x3/uL (130-400); RBC Distribution Width 12.9 % (11.5-14.5); Red Blood Cell (RBC) Count 4.13 mill/uL (4.70-6.10)
[2023-09-01] MEDS ORDERED: Iopamidol-370 76% 500 ML MDV (1 ML CHARGE) ONE (11:18)
[2023-09-01] MEDS ORDERED: Morphine 4 MG/ML VIAL ONE ×2 (11:20→13:09)
[2023-09-01] MEDS ORDERED: Mag-Al 1200 mg/1200 mg/30 ML UDCUP ONE (11:20)
[2023-09-01] MEDS ORDERED: Ondansetron PF 4 MG/2 ML Vial ONE (11:20)
[2023-09-01 11:27] LABS: ALT (SGPT) 18 U/L (8-55); AST (SGOT) 18 U/L (5-34); Albumin 4.6 g/dL (3.4-4.8); Alkaline Phosphatase 62 U/L (40-110); Anion Gap 13 mmol/L (10-20); BUN (Urea Nitrogen) 6 mg/dL (8.4-25.7); Bilirubin, Total 0.3 mg/dL (0.2-1.2); Calc. Creatinine Clearance 0 mL/min (70-130); Calcium 9.6 mg/dL (7.8-10.44); Carbon Dioxide 26 mmol/L (23-31); Chloride 98 mmol/L (98-107); Estimated GFR 75; Globulin 2.7 g/dL (2.4-3.5); Glucose 108 mg/dL (80-115); Potassium 3.3 mmol/L (3.5-5.1); Protein, Total 7.3 g/dL (5.8-8.1); Sodium 134 mmol/L (136-145)
[2023-09-01 11:31] LABS: Troponin I Less than 0.010 ng/mL (< 0.028)
[2023-09-01 11:52] LABS: Lipase 26 U/L (8-78); Magnesium 1.9 mg/dL (1.6-2.6)
[2023-09-01] MEDS ORDERED: Pantoprazole 40 MG VIAL ONE (11:59)
[2023-09-01] MEDS ORDERED: HYDROcodone/Acetaminophen 5/325 mg Tablet PO PRN (12:27)
[2023-09-01] MEDS ORDERED: Calcium Carbonate 500 MG ChewTAB PO PRN (12:27)
[2023-09-01] MEDS ORDERED: Potassium Chloride 20 MEQ TAB PO SCH (12:45)
[2023-09-01] MEDS ORDERED: Electrolyte Replacement Protocol 1 EACH FS SCH (12:45)
[2023-09-01] MEDS ORDERED: Fluconazole In NaCl,Iso-Osm 200 MG in Premix 1 BAG IVPB SCH (13:00)
[2023-09-01] MEDS ORDERED: Fluconazole In NaCl,Iso-Osm 400 MG in Premix 1 BAG IVPB SCH (13:30)
[2023-09-01 13:55] VITALS: BMI 28.0
[2023-09-01] MEDS ORDERED: diphenhydrAMINE 25 MG CAP PO PRN (14:13)
[2023-09-01] MEDS ORDERED: Nicotine 21 MG PATCH TD SCH (14:15)
[2023-09-01 15:47] LABS: Troponin I Less than 0.010 ng/mL (< 0.028)
[2023-09-01] MEDS ORDERED: Fioricet 325/50/40 mg Tablet PO PRN (16:12)
[2023-09-01 17:45] LABS: Troponin I Less than 0.010 ng/mL (< 0.028)
[2023-09-01] MEDS: hydrALAZINE 20 MG/ML VIAL SLOW IVP PRN (20:23)
[2023-09-01] MEDS: Gabapentin 400 MG CAP PO SCH (20:23)
[2023-09-01] MEDS: Methocarbamol 500 MG TAB PO SCH (20:24)
[2023-09-01] MEDS: Pantoprazole 40 MG VIAL IVP SCH (20:25)
[2023-09-01] MEDS ORDERED: traZODone HCl 50 MG TAB PO SCH (21:00)
[2023-09-02] MEDS: hydrALAZINE 20 MG/ML VIAL SLOW IVP PRN (00:15)
[2023-09-02] MEDS: Acetaminophen 325 MG TAB PO PRN ×2 (00:15→08:09)
[2023-09-02] MEDS ORDERED: Magnesium 2 GM/50 ML(in water) 2 GM in Premix 1 BAG IVPB SCH (01:45)
[2023-09-02] MEDS ORDERED: Ondansetron PF 4 MG/2 ML Vial IVP SCH (01:45)
[2023-09-02 05:53] LABS: #Basophils 0.1 thou/uL (0.0-0.2); #Eosinphils 0.2 thou/uL (0.0-0.7); #Monocytes 0.8 thou/uL (0.11-0.59); #Neutrophils 6.6 thou/uL (1.40-6.50); %Basophils 0.6 % (0.0-1.0); %Eosinophils 2.3 % (0.0-10.0); %Lymphocytes 13.7 % (21.0-51.0); %Monocytes 8.9 % (0.0-10.0); %Neutrophils 74.2 % (42.0-75.0); Hematocrit 41.2 % (42.0-52.0); Hemoglobin 13.9 g/dL (14.0-18.0); Mean Corpuscular HGB CONC 33.7 g/dL (32.0-36.0); Mean Corpuscular Hemoglobin 34.3 pg (27.0-31.0); Mean Corpuscular Volume 101.7 fl (78.0-98.0); Mean Platelet Volume 9.1 fL (7.4-10.4); Platelet Count 243 10x3/uL (130-400); RBC Distribution Width 13.2 % (11.5-14.5); Red Blood Cell (RBC) Count 4.05 mill/uL (4.70-6.10); White Blood Cell (WBC) Count 8.9 10x3/uL (4.8-10.8)
[2023-09-02 06:17] LABS: ALT (SGPT) 16 U/L (8-55); AST (SGOT) 19 U/L (5-34); Albumin 4.2 g/dL (3.4-4.8); Alkaline Phosphatase 61 U/L (40-110); Anion Gap 12 mmol/L (10-20); BUN (Urea Nitrogen) 7 mg/dL (8.4-25.7); Bilirubin, Total 0.3 mg/dL (0.2-1.2); Calc. Creatinine Clearance 81 mL/min (70-130); Carbon Dioxide 29 mmol/L (23-31); Cardiac Risk 3.2 (Less than 4.5); Chloride 97 mmol/L (98-107); Cholesterol 211 mg/dl (< 200 Desired); Estimated GFR 86; Globulin 2.7 g/dL (2.4-3.5); Glucose 110 mg/dL (80-115); HDL Cholesterol 65 mg/dL (>60 Neg Risk); LDL Cholesterol, Calculated 118 mg/dL; Potassium 3.9 mmol/L (3.5-5.1); Protein, Total 6.9 g/dL (5.8-8.1); Sodium 134 mmol/L (136-145); Triglycerides 139 mg/dL (Less than 150)
[2023-09-02] MEDS ORDERED: Fluconazole In NaCl,Iso-Osm 200 MG in Premix 1 BAG IVPB SCH (09:00)
[2023-09-02] MEDS ORDERED: DULoxetine 60 MG CAP PO SCH (09:00)
[2023-09-02] MEDS ORDERED: Losartan 25 MG TAB PO SCH (09:00)
[2023-09-02] MEDS ORDERED: clonazePAM 0.5 MG TAB PO SCH (09:00)
[2023-09-02] MEDS ORDERED: Darunavir/Cobicistat [Prezcobix 800 Mg-150 Mg Tablet] PO SCH (09:00)
[2023-09-02] MEDS ORDERED: PROPOFOL 200 MG/20 ML VIAL ONE (09:12)
[2023-09-02] MEDS ORDERED: Lidocaine 1% PF 5 ML VIAL ONE (09:12)
[2023-09-02] MEDS: Methocarbamol 500 MG TAB PO SCH (10:06)
[2023-09-02] MEDS: Gabapentin 400 MG CAP PO SCH (10:06)
[2023-09-02] MEDS: Pantoprazole 40 MG VIAL IVP SCH (10:58)
[2023-09-02 11:16] VITALS: BP 154/92; TEMP 97.7
[2023-09-02] MEDS ORDERED: Nicotine 21 MG PATCH TD SCH (14:00)
[2023-09-03 17:15] LABS: %CD4 (Helper/Inducer) 7.2 % (30.8-58.5); Absolute CD4 86 /uL (359-1519); Lymphocytes/Gated Cell Count 1.2 x10E3/uL (0.7-3.1); Total Lymphocyte 14 % (Not Estab.); WBC Total Count 8.7 x10E3/uL (3.4-10.8)
[2023-09-04 21:36] LABS: HIV-1 Quantitative, RNA PCR <20 copies/mL (.)
== END 2023-09-02 12:29 | disposition home or self-care (01) ==
LOC: ERS 10:31 → 2SW 12:16
PROVIDERS: ADMIT Family Medicine; ATTEND Internal Medicine
PROC: 0DB38ZX Excision of Lower Esophagus, Via Natural or Artificial Opening Endoscopic, Diagnostic (ICD-10-PCS; principal; 2023-09-02)
DX: R13.10 Dysphagia, unspecified (principal); B37.81 Candidal esophagitis; K22.10 Ulcer of esophagus without bleeding; R07.89 Other chest pain; B20 Human immunodeficiency virus [HIV] disease; E78.5 Hyperlipidemia, unspecified; I10 Essential (primary) hypertension; F41.9 Anxiety disorder, unspecified; F32.A Depression, unspecified; K44.9 Diaphragmatic hernia without obstruction or gangrene; D64.9 Anemia, unspecified; E87.1 Hypo-osmolality and hyponatremia; E87.6 Hypokalemia; E83.42 Hypomagnesemia; F17.210 Nicotine dependence, cigarettes, uncomplicated; Z88.2 Allergy status to sulfonamides; Z88.8 Allergy status to other drugs, medicaments and biological substances; Z79.899 Other long term (current) drug therapy; Z16.33 Resistance to antiviral drug(s)
CPT/HCPCS: 43239; 71045; 71275; 80053 ×2; 80061; 83690; 83735; 84484 ×2; 85025 ×2; 86361; 87536; 93005; 96365; 96375 ×3; 96376 ×3; 99285; G0378 ×3; J0360 ×2; 36415; 88305; 88312; C9113; J1450; J2270; J2405; J2704; J3475; Q9967

== ENCOUNTER 2023-09-14 14:41 | Inpatient (IN) | payer MEDICARE, MEDICAID ==
[2023-09-14 15:34] LABS: ALT (SGPT) 23 U/L (8-55); AST (SGOT) 39 U/L (5-34); Albumin 5.1 g/dL (3.4-4.8); Alkaline Phosphatase 73 U/L (40-110); Anion Gap 21 mmol/L (10-20); BUN (Urea Nitrogen) 11 mg/dL (8.4-25.7); Calc. Creatinine Clearance 0 mL/min (70-130); Calcium 9.7 mg/dL (7.8-10.44); Carbon Dioxide 25 mmol/L (23-31); Chloride 66 mmol/L (98-107); Estimated GFR 77; Globulin 3.1 g/dL (2.4-3.5); Glucose 174 mg/dL (80-115); Lipase 34 U/L (8-78); Magnesium 1.9 mg/dL (1.6-2.6); Potassium 3.1 mmol/L (3.5-5.1); Protein, Total 8.2 g/dL (5.8-8.1)
[2023-09-14 15:36] LABS: Troponin I Less than 0.010 ng/mL (< 0.028)
[2023-09-14 15:44] LABS: Sodium 109 mmol/L (136-145)
[2023-09-14 15:55] LABS: #Monocytes 0.6 thou/uL (0.11-0.59); #Neutrophils 6.5 thou/uL (1.40-6.50); %Basophils 0.2 % (0.0-1.0); %Eosinophils 0.4 % (0.0-10.0); %Lymphocytes 11.2 % (21.0-51.0); %Monocytes 7.6 % (0.0-10.0); %Neutrophils 80.4 % (42.0-75.0); Hematocrit 41.5 % (42.0-52.0); Hemoglobin 15.8 g/dL (14.0-18.0); Mean Corpuscular HGB CONC 38.1 g/dL (32.0-36.0); Mean Corpuscular Hemoglobin 34.1 pg (27.0-31.0); Mean Corpuscular Volume 89.6 fl (78.0-98.0); Mean Platelet Volume 9.5 fL (7.4-10.4); Platelet Count 219 10x3/uL (130-400); RBC Distribution Width 11.5 % (11.5-14.5); Red Blood Cell (RBC) Count 4.63 mill/uL (4.70-6.10); White Blood Cell (WBC) Count 8.1 10x3/uL (4.8-10.8)
[2023-09-14] MEDS ORDERED: LORazepam 2 MG/ML SYR.(CARPUJECT) ONE (16:59)
[2023-09-14] MEDS ORDERED: Ondansetron ODT 4 MG TAB PO PRN (18:05)
[2023-09-14] MEDS ORDERED: Ondansetron PF 4 MG/2 ML Vial IVP PRN (18:05)
[2023-09-14] MEDS ORDERED: Acetaminophen 650 MG Suppository PR PRN (18:05)
[2023-09-14] MEDS ORDERED: Electrolyte Replacement Protocol 1 EACH FS PRN (20:15)
[2023-09-14] MEDS ORDERED: Acetaminophen 325 MG TAB ONE (20:27)
[2023-09-14] MEDS ORDERED: Potassium Chloride 20 MEQ/100 ML PREMIX BAG ONE (20:27)
[2023-09-14] MEDS: Acetaminophen 325 MG TAB PO PRN (20:39)
[2023-09-14] MEDS ORDERED: Ondansetron ODT 4 MG TAB ONE (20:41)
[2023-09-14] MEDS: Potassium Chloride 20 MEQ in Premix 1 BAG IVPB SCH (21:06)
[2023-09-14 21:25] LABS: Anion Gap 18 mmol/L (10-20); BUN (Urea Nitrogen) 9 mg/dL (8.4-25.7); Calc. Creatinine Clearance 87 mL/min (70-130); Calcium 9.7 mg/dL (7.8-10.44); Carbon Dioxide 25 mmol/L (23-31); Chloride 72 mmol/L (98-107); Estimated GFR 89; Glucose 118 mg/dL (80-115); Potassium 3.2 mmol/L (3.5-5.1)
[2023-09-14 21:30] LABS: Sodium 112 mmol/L (136-145)
[2023-09-14 21:56] LABS: Bacteria/HPF None Seen HPF (None Seen); Bilirubin Negative (Negative); Blood, Urine Negative (Negative); CAUTI Indications for Culture Alt mental st,lethar; Clarity Clear (Clear); Glucose, Urine (Dipstick) 70 mg/dL (Negative); Ketone, Urine Negative (Negative); Leukocyte Negative Leu/uL (Negative); Nitrite Negative (Negative); Protein, Urine (Dipstick) Negative (Neg-Trace); RBC/HPF 0-3 HPF (0-3); Specific Gravity, Urine 1.008 (1.002-1.036); Squamous Epithelial None Seen HPF (0-3); Urobilinogen Normal mg/dL (Less than 2); WBC/HPF None Seen HPF (0-3); pH, Urine 7.5 (5.0-9.0)
[2023-09-14 22:00] LABS: Urine Culture Reflex No No
[2023-09-14] MEDS ORDERED: Magnesium 2 GM/50 ML(in water) 2 GM in Premix 1 BAG IVPB SCH (22:00)
[2023-09-14] MEDS ORDERED: Dextrose 50% Abboject 50 ML SYRINGE SLOW IVP PRN (22:43)
[2023-09-14] MEDS ORDERED: Glucagon 1 MG/ML KIT IM PRN (22:43)
[2023-09-14] MEDS ORDERED: Dextrose 5% in Water 1,000 ML IV PRN (22:43)
[2023-09-14] MEDS ORDERED: Morphine 4 MG/ML VIAL ONE (23:00)
[2023-09-14 23:54] LABS: Anion Gap 16 mmol/L (10-20); BUN (Urea Nitrogen) 9 mg/dL (8.4-25.7); Calc. Creatinine Clearance 84 mL/min (70-130); Carbon Dioxide 26 mmol/L (23-31); Chloride 74 mmol/L (98-107); Estimated GFR 86; Glucose 109 mg/dL (80-115); Potassium 3.8 mmol/L (3.5-5.1)
[2023-09-14] MEDS ORDERED: Metoclopramide HCl 10 MG/2 ML VIAL IVP PRN (23:56)
[2023-09-15 00:11] LABS: Sodium 112 mmol/L (136-145)
[2023-09-15] MEDS: Potassium Chloride 20 MEQ in Premix 1 BAG IVPB SCH ×3 (00:14→11:52)
[2023-09-15] MEDS ORDERED: Pantoprazole 40 MG VIAL IVP SCH ×2 (00:15→18:31)
[2023-09-15] MEDS ORDERED: Sodium Chloride 0.9% 1,000 ML IV SCH ×2 (00:30→05:15)
[2023-09-15] MEDS: Acetaminophen 325 MG TAB PO PRN (04:30)
[2023-09-15 04:38] LABS: #Eosinphils 0.1 thou/uL (0.0-0.7); #Monocytes 0.9 thou/uL (0.11-0.59); #Neutrophils 3.6 thou/uL (1.40-6.50); %Basophils 0.3 % (0.0-1.0); %Lymphocytes 21.3 % (21.0-51.0); %Monocytes 15.3 % (0.0-10.0); %Neutrophils 60.9 % (42.0-75.0); Hematocrit 38.7 % (42.0-52.0); Hemoglobin 14.3 g/dL (14.0-18.0); Mean Corpuscular Hemoglobin 33.7 pg (27.0-31.0); Mean Corpuscular Volume 91.3 fl (78.0-98.0); Mean Platelet Volume 8.6 fL (7.4-10.4); Platelet Count 265 10x3/uL (130-400); RBC Distribution Width 11.5 % (11.5-14.5); Red Blood Cell (RBC) Count 4.24 mill/uL (4.70-6.10); White Blood Cell (WBC) Count 5.9 10x3/uL (4.8-10.8)
[2023-09-15 04:52] LABS: Anion Gap 16 mmol/L (10-20); BUN (Urea Nitrogen) 9 mg/dL (8.4-25.7); Calc. Creatinine Clearance 91 mL/min (70-130); Calcium 9.1 mg/dL (7.8-10.44); Carbon Dioxide 27 mmol/L (23-31); Chloride 78 mmol/L (98-107); Estimated GFR 94; Glucose 113 mg/dL (80-115); Magnesium 2.5 mg/dL (1.6-2.6); Potassium 3.7 mmol/L (3.5-5.1)
[2023-09-15 04:57] LABS: Sodium 117 mmol/L (136-145)
[2023-09-15 06:10] VITALS: BMI 28.2
[2023-09-15 08:19] LABS: Anion Gap 16 mmol/L (10-20); BUN (Urea Nitrogen) 9 mg/dL (8.4-25.7); Calc. Creatinine Clearance 84 mL/min (70-130); Calcium 9.2 mg/dL (7.8-10.44); Carbon Dioxide 25 mmol/L (23-31); Chloride 77 mmol/L (98-107); Estimated GFR 89; Glucose 128 mg/dL (80-115); Potassium 3.5 mmol/L (3.5-5.1)
[2023-09-15 08:27] LABS: Sodium 114 mmol/L (136-145)
[2023-09-15] MEDS ORDERED: Sodium Chloride 1 GM TAB PO SCH (09:00)
[2023-09-15] MEDS ORDERED: Nicotine 14 MG PATCH TD SCH (09:00)
[2023-09-15] MEDS ORDERED: Micafungin 150 MG in Sodium Chloride 0.9% 100 ML IVPB SCH (09:00)
[2023-09-15 11:37] VITALS: TEMP 98.2
[2023-09-15 12:57] VITALS: BP 159/105
[2023-09-16] MEDS ORDERED: DARUNAVIR PO SCH (09:00)
[2023-09-16] MEDS ORDERED: SODIUM CHLORIDE 0.9% IVPB SCH (09:00)
[2023-09-16] MEDS ORDERED: MICAFUNGIN IVPB SCH (09:00)
[2023-09-16] MEDS ORDERED: Non-Formulary Item 1 EACH (Darunavir/Cobicistat [Prezcobix 800 Mg-150 Mg Tablet] 1 EACH T PO SCH (09:00)
[2023-09-16] MEDS ORDERED: COBICISTAT PO SCH (09:00)
== END 2023-09-15 15:44 | disposition home or self-care (01) | DRG 641 ==
LOC: ERS 14:41 → ERHOLD 17:31 → IMCU/EMU 09-15 00:11
PROVIDERS: ADMIT Student in an Organized Health Care Education/Training Program; ATTEND Student in an Organized Health Care Education/Training Program
DX: E86.0 Dehydration (principal); B37.81 Candidal esophagitis; E87.1 Hypo-osmolality and hyponatremia; E78.5 Hyperlipidemia, unspecified; I10 Essential (primary) hypertension; Z21 Asymptomatic human immunodeficiency virus [HIV] infection status; E87.6 Hypokalemia; R07.89 Other chest pain; I45.81 Long QT syndrome; K21.9 Gastro-esophageal reflux disease without esophagitis; Z79.899 Other long term (current) drug therapy; Z88.8 Allergy status to other drugs, medicaments and biological substances; Z90.49 Acquired absence of other specified parts of digestive tract; Z98.890 Other specified postprocedural states
CPT/HCPCS: 36415; 71046; 80048; 80053; 81001; 82436; 82533; 82570; 83690; 83735; 83930; 83935; 84133; 84300; 84443; 84484; 84550; 85025; 93005; 93010; 96361; 96374; 96375; C9113; J1650; J2060; J2248; J2270; J2765; J3475; J3480; J3490; J7050; Q0162

== ENCOUNTER 2025-07-25 10:20 | Inpatient (IN) | payer MEDICARE, MEDICAID ==
[2025-07-25 11:11] LABS: #Basophils 0.04 10x3/uL (0.0-0.2); #Eosinophils 0.11 10x3/uL (0.0-0.7); #Monocytes 0.79 10x3/uL (0.11-0.59); #Neutrophils 3.37 10x3/uL (1.40-6.50); %Basophils 0.8 % (0.0-1.0); %Eosinophils 2.1 % (0.0-10.0); %Lymphocytes 18.2 % (21.0-51.0); %Monocytes 15.0 % (0.0-10.0); %Neutrophils 63.7 % (42.0-75.0); Hematocrit 39.5 % (42.0-52.0); Hemoglobin 14.5 g/dL (14.0-18.0); Mean Corpuscular Hemoglobin 33.4 pg (27.0-31.0); Mean Corpuscular Volume 91.0 fL (78.0-98.0); Platelet Count 276 10x3/uL (130-400); Red Blood Cell (RBC) Count 4.34 mill/uL (4.70-6.10); White Blood Cell (WBC) Count 5.28 10x3/uL (4.8-10.8)
[2025-07-25 11:49] LABS: Albumin 4.2 g/dL (3.1-4.5); Anion Gap 16 mmol/L (10-20); BUN (Urea Nitrogen) 6 mg/dL (8.4-25.7); Bilirubin, Total 0.7 mg/dL (0.3-1.2); Calc. Creatinine Clearance 0 mL/min (70-130); Calcium 9.3 mg/dL (7.8-10.44); Carbon Dioxide 30 mmol/L (23-31); Chloride 71 mmol/L (98-107); Globulin 3.2 g/dL (2.4-3.5); Glucose 138 mg/dL (80-115); Potassium 2.5 mmol/L (3.5-5.1); Sodium 114 mmol/L (136-145)
[2025-07-25 11:50] LABS: ALT (SGPT) 27 U/L (Less than 45); AST (SGOT) 41 U/L (11-34); Alkaline Phosphatase 98 U/L (40-110)
[2025-07-25 13:07] LABS: Anion Gap 13 mmol/L (10-20); BUN (Urea Nitrogen) 6 mg/dL (8.4-25.7); Calc. Creatinine Clearance 0 mL/min (70-130); Calcium 9.5 mg/dL (7.8-10.44); Carbon Dioxide 32 mmol/L (23-31); Chloride 74 mmol/L (98-107); Glucose 112 mg/dL (80-115); Potassium 2.5 mmol/L (3.5-5.1); Sodium 116 mmol/L (136-145)
[2025-07-25] MEDS ORDERED: NS 0.9% w/ 20 MEQ KCL 1,000 ML ONE (13:16)
[2025-07-25] MEDS ORDERED: Potassium Chloride 20 MEQ (100 mL) BAG ONE ×2 (13:16→16:36)
[2025-07-25] MEDS: Potassium Chloride 20 MEQ in Premix 1 BAG IVPB SCH (13:30)
[2025-07-25 14:53] LABS: Magnesium 1.9 mg/dL (1.6-2.6)
[2025-07-25 14:54] LABS: Uric Acid 4.5 mg/dL (3.7-7.7)
[2025-07-25 14:58] LABS: Osmolality, Serum 245 mOsm/kg (280-301)
[2025-07-25] MEDS ORDERED: Acetaminophen 500 MG TAB ONE (15:23)
[2025-07-25 16:26] VITALS: BMI 30.9
[2025-07-25 16:27] VITALS: BP 110/74
[2025-07-25] MEDS ORDERED: Gabapentin 300 MG CAP ONE (16:36)
[2025-07-25] MEDS: Gabapentin 300 MG CAP PO SCH (16:49)
[2025-07-25 17:24] LABS: Anion Gap 15 mmol/L (10-20); BUN (Urea Nitrogen) 5 mg/dL (8.4-25.7); Calc. Creatinine Clearance 91 mL/min (70-130); Calcium 9.4 mg/dL (7.8-10.44); Carbon Dioxide 32 mmol/L (23-31); Chloride 76 mmol/L (98-107); Glucose 112 mg/dL (80-115); Magnesium 2.0 mg/dL (1.6-2.6); Potassium 2.8 mmol/L (3.5-5.1); Sodium 120 mmol/L (136-145)
[2025-07-25] MEDS ORDERED: Electrolyte Replacement Protocol 1 EACH FS SCH (17:58)
[2025-07-25] MEDS: Famotidine/PF 20 mg/2ml Vial SLOW IVP SCH (20:33)
[2025-07-25] MEDS: Melatonin 3 MG TAB PO PRN (20:33)
[2025-07-25] MEDS: Famotidine 20 MG TAB PO SCH (20:33)
[2025-07-25] MEDS: Magnesium 2 GM/50 ML(in water) 2 GM in Premix 1 BAG IVPB SCH (20:33)
[2025-07-25 22:46] LABS: Anion Gap 13 mmol/L (10-20); BUN (Urea Nitrogen) 6 mg/dL (8.4-25.7); Calc. Creatinine Clearance 93 mL/min (70-130); Calcium 8.9 mg/dL (7.8-10.44); Carbon Dioxide 30 mmol/L (23-31); Chloride 81 mmol/L (98-107); Glucose 105 mg/dL (80-115); Potassium 2.9 mmol/L (3.5-5.1); Sodium 121 mmol/L (136-145)
[2025-07-25] MEDS: Ondansetron PF 4 MG/2 ML Vial IVP PRN (22:47)
[2025-07-25 23:11] LABS: Osmolality, Urine 190 mOsm/kg (50-1200)
[2025-07-26 04:50] VITALS: TEMP 98.1
[2025-07-26] MEDS: Acetaminophen 325 MG TAB PO PRN (04:56)
[2025-07-26 05:51] LABS: Anion Gap 15 mmol/L (10-20); BUN (Urea Nitrogen) 6 mg/dL (8.4-25.7); Calc. Creatinine Clearance 105 mL/min (70-130); Calcium 9.1 mg/dL (7.8-10.44); Carbon Dioxide 29 mmol/L (23-31); Chloride 80 mmol/L (98-107); Glucose 100 mg/dL (80-115); Magnesium 3.1 mg/dL (1.6-2.6); Potassium 3.0 mmol/L (3.5-5.1); Sodium 121 mmol/L (136-145)
[2025-07-26] MEDS ORDERED: Enoxaparin 40 MG (0.4 mL) SYRINGE SC SCH (09:00)
[2025-07-27 14:14] LABS: %CD4 (Helper/Inducer) 17.2 % (30.8-58.5); Absolute CD4 189 /uL (359-1519); Lymphocytes/Gated Cell Count 1.1 x10E3/uL (0.7-3.1); Total Lymphocyte 27 % (Not Estab.); WBC Total Count 4.2 x10E3/uL (3.4-10.8)
== END 2025-07-26 08:49 | disposition left against medical advice (07) | DRG 641 ==
LOC: ERS 10:20 → ERHOLD 13:58 → IMCU/EMU 18:14
PROVIDERS: ADMIT Family Medicine; ATTEND Internal Medicine
DX: E87.1 Hypo-osmolality and hyponatremia (principal); E78.5 Hyperlipidemia, unspecified; I10 Essential (primary) hypertension; Z21 Asymptomatic human immunodeficiency virus [HIV] infection status; E87.6 Hypokalemia; F41.9 Anxiety disorder, unspecified; E86.9 Volume depletion, unspecified; R19.7 Diarrhea, unspecified; F17.210 Nicotine dependence, cigarettes, uncomplicated; F32.A Depression, unspecified; Z98.890 Other specified postprocedural states; Z90.49 Acquired absence of other specified parts of digestive tract; Z88.8 Allergy status to other drugs, medicaments and biological substances; Z79.899 Other long term (current) drug therapy
CPT/HCPCS: 36415; 80048; 80053; 82533; 82570; 83735; 83930; 83935; 84300; 84443; 84484; 84550; 85025; 86361; 87428; 93005; 96365; 96366; 99283; J1308; J2405; J3475; J3480

== ENCOUNTER 2025-09-14 09:03 | Inpatient (IN) | payer MEDICARE, MEDICAID ==
[2025-09-14] MEDS ORDERED: Ondansetron PF 4 MG/2 ML Vial ONE (10:42)
[2025-09-14 10:55] LABS: #Basophils 0.03 10x3/uL (0.0-0.2); #Eosinophils Less than 0.03 10x3/uL (0.0-0.7); #Monocytes 0.87 10x3/uL (0.11-0.59); #Neutrophils 5.05 10x3/uL (1.40-6.50); %Basophils 0.4 % (0.0-1.0); %Eosinophils 0.1 % (0.0-10.0); %Lymphocytes 12.2 % (21.0-51.0); %Monocytes 12.8 % (0.0-10.0); %Neutrophils 74.2 % (42.0-75.0); Hematocrit 42.7 % (42.0-52.0); Hemoglobin 15.9 g/dL (14.0-18.0); Mean Corpuscular Hemoglobin 33.8 pg (27.0-31.0); Mean Corpuscular Volume 90.7 fL (78.0-98.0); Platelet Count 267 10x3/uL (130-400); Red Blood Cell (RBC) Count 4.71 mill/uL (4.70-6.10); White Blood Cell (WBC) Count 6.81 10x3/uL (4.8-10.8)
[2025-09-14 11:21] LABS: ALT (SGPT) 23 U/L (Less than 45); AST (SGOT) 39 U/L (11-34); Albumin 4.3 g/dL (3.1-4.5); Alkaline Phosphatase 91 U/L (40-110); Anion Gap 19 mmol/L (10-20); BUN (Urea Nitrogen) 9 mg/dL (8.4-25.7); Bilirubin, Total 1.0 mg/dL (0.3-1.2); Calc. Creatinine Clearance 0 mL/min (70-130); Calcium 9.6 mg/dL (7.8-10.44); Carbon Dioxide 30 mmol/L (23-31); Chloride 73 mmol/L (98-107); Globulin 3.3 g/dL (2.4-3.5); Glucose 117 mg/dL (80-115); Potassium 2.8 mmol/L (3.5-5.1); Sodium 119 mmol/L (136-145)
[2025-09-14] MEDS ORDERED: Potassium Chloride 20 MEQ (100 mL) BAG ONE (11:48)
[2025-09-14] MEDS ORDERED: Senokot S 8.6-50 MG TAB PO PRN (12:11)
[2025-09-14] MEDS ORDERED: Ondansetron PF 4 MG/2 ML Vial IVP PRN (12:11)
[2025-09-14] MEDS ORDERED: Guaifenesin DM 100-10/5 ML UDCUP PO PRN (12:11)
[2025-09-14 12:18] LABS: Magnesium 1.8 mg/dL (1.6-2.6)
[2025-09-14 12:57] VITALS: BMI 27.4
[2025-09-14 12:57] LABS: Osmolality, Serum 242 mOsm/kg (280-301)
[2025-09-14 13:40] LABS: Bacteria/HPF None Seen HPF (None Seen); CAUTI Indications for Culture Alt mental st,lethar; Glucose, Urine (Dipstick) Normal (Negative); Leukocyte Negative Leu/uL (Negative); Protein, Urine (Dipstick) 10 mg/dL (Neg-Trace); RBC/HPF 0-3 HPF (0-3); Specific Gravity, Urine 1.020 (1.002-1.036); WBC/HPF 0-3 HPF (0-3)
[2025-09-14 13:48] LABS: Urine Culture Reflex No No
[2025-09-14 14:46] LABS: ALT (SGPT) 20 U/L (Less than 45); AST (SGOT) 36 U/L (11-34); Albumin 3.7 g/dL (3.1-4.5); Alkaline Phosphatase 81 U/L (40-110); Anion Gap 15 mmol/L (10-20); BUN (Urea Nitrogen) 9 mg/dL (8.4-25.7); Bilirubin, Total 0.9 mg/dL (0.3-1.2); Calc. Creatinine Clearance 77 mL/min (70-130); Calcium 8.7 mg/dL (7.8-10.44); Carbon Dioxide 28 mmol/L (23-31); Chloride 78 mmol/L (98-107); Globulin 2.8 g/dL (2.4-3.5); Glucose 107 mg/dL (80-115); Potassium 2.7 mmol/L (3.5-5.1); Sodium 118 mmol/L (136-145)
[2025-09-14] MEDS ORDERED: Magnesium 2 GM/50 ML BAG (IN WATER) ONE (14:54)
[2025-09-14] MEDS: Magnesium 2 GM/50 ML(in water) 2 GM in Premix 1 BAG IVPB SCH (14:58)
[2025-09-14 15:00] VITALS: BP 146/93
[2025-09-14] MEDS: Potassium Chloride 20 MEQ in Premix 1 BAG IVPB SCH (15:56)
[2025-09-14] MEDS: ALPRAZolam 0.25 MG TAB PO SCH (16:18)
[2025-09-14 16:29] LABS: Osmolality, Urine 343 mOsm/kg (50-1200)
[2025-09-14 16:43] LABS: Potassium, Urine 38.0 mmol/L; Sodium, Urine 68.0 mmol/L (Not Available)
[2025-09-14] MEDS: Melatonin 3 MG TAB PO PRN (20:40)
[2025-09-14] MEDS: Acetaminophen 325 MG TAB PO PRN (20:40)
[2025-09-14] MEDS: Mupirocin 1 GM TUBE TP SCH (20:41)
[2025-09-14] MEDS: Sodium Chloride 256 MEQ in Sterile Water 936 ML IV SCH (20:46)
[2025-09-14 23:17] LABS: Anion Gap 15 mmol/L (10-20); BUN (Urea Nitrogen) 6 mg/dL (8.4-25.7); Calc. Creatinine Clearance 84 mL/min (70-130); Calcium 8.6 mg/dL (7.8-10.44); Carbon Dioxide 28 mmol/L (23-31); Chloride 83 mmol/L (98-107); Glucose 100 mg/dL (80-115); Potassium 2.7 mmol/L (3.5-5.1); Sodium 123 mmol/L (136-145)
[2025-09-15 03:08] LABS: #Basophils 0.05 10x3/uL (0.0-0.2); #Eosinophils 0.14 10x3/uL (0.0-0.7); #Monocytes 0.87 10x3/uL (0.11-0.59); #Neutrophils 2.68 10x3/uL (1.40-6.50); %Basophils 1.0 % (0.0-1.0); %Eosinophils 2.8 % (0.0-10.0); %Lymphocytes 25.7 % (21.0-51.0); %Monocytes 17.2 % (0.0-10.0); %Neutrophils 52.9 % (42.0-75.0); Hematocrit 39.4 % (42.0-52.0); Hemoglobin 14.0 g/dL (14.0-18.0); Mean Corpuscular Hemoglobin 33.8 pg (27.0-31.0); Mean Corpuscular Volume 95.2 fL (78.0-98.0); Platelet Count 215 10x3/uL (130-400); Red Blood Cell (RBC) Count 4.14 mill/uL (4.70-6.10); White Blood Cell (WBC) Count 5.06 10x3/uL (4.8-10.8)
[2025-09-15 04:01] LABS: ALT (SGPT) 18 U/L (Less than 45); AST (SGOT) 36 U/L (11-34); Albumin 3.6 g/dL (3.1-4.5); Alkaline Phosphatase 77 U/L (40-110); Anion Gap 14 mmol/L (10-20); BUN (Urea Nitrogen) 6 mg/dL (8.4-25.7); Bilirubin, Total 1.1 mg/dL (0.3-1.2); Calc. Creatinine Clearance 88 mL/min (70-130); Calcium 8.7 mg/dL (7.8-10.44); Carbon Dioxide 26 mmol/L (23-31); Chloride 84 mmol/L (98-107); Globulin 2.6 g/dL (2.4-3.5); Glucose 97 mg/dL (80-115); Potassium 2.7 mmol/L (3.5-5.1); Sodium 121 mmol/L (136-145)
[2025-09-15] MEDS: Potassium Chloride 20 MEQ in Premix 1 BAG IVPB SCH (05:45)
[2025-09-15 07:10] VITALS: TEMP 98.1
[2025-09-15 08:34] LABS: Anion Gap 12 mmol/L (10-20); BUN (Urea Nitrogen) 5 mg/dL (8.4-25.7); Calc. Creatinine Clearance 87 mL/min (70-130); Calcium 9.3 mg/dL (7.8-10.44); Carbon Dioxide 30 mmol/L (23-31); Chloride 83 mmol/L (98-107); Glucose 100 mg/dL (80-115); Potassium 3.1 mmol/L (3.5-5.1); Sodium 122 mmol/L (136-145)
[2025-09-15] MEDS ORDERED: Darunavir/Cobicistat [Prezcobix 800 Mg-150 Mg Tablet PO SCH (09:00)
[2025-09-15] MEDS ORDERED: Enoxaparin 40 MG (0.4 mL) SYRINGE SC SCH (09:00)
[2025-09-15] MEDS ORDERED: clonazePAM 0.5 MG TAB PO SCH (09:00)
[2025-09-16 05:31] LABS: GC N.gonorrhoeae PCR,UrineVOID Not Detected (NotDetected)
== END 2025-09-15 08:20 | disposition left against medical advice (07) | DRG 641 ==
LOC: ERS 09:03 → ERHOLD 12:14 → IMCU/EMU 15:40
PROVIDERS: ADMIT Hospitalist; ATTEND Internal Medicine
DX: E87.1 Hypo-osmolality and hyponatremia (principal); I10 Essential (primary) hypertension; E78.5 Hyperlipidemia, unspecified; Z88.8 Allergy status to other drugs, medicaments and biological substances; Z88.1 Allergy status to other antibiotic agents; Z21 Asymptomatic human immunodeficiency virus [HIV] infection status; F41.9 Anxiety disorder, unspecified; Z90.49 Acquired absence of other specified parts of digestive tract; Z98.890 Other specified postprocedural states; F17.210 Nicotine dependence, cigarettes, uncomplicated; E87.6 Hypokalemia; E83.42 Hypomagnesemia; T50.995A Adverse effect of other drugs, medicaments and biological substances, initial encounter; F32.A Depression, unspecified; G62.9 Polyneuropathy, unspecified; K21.9 Gastro-esophageal reflux disease without esophagitis; E26.81 Bartter's syndrome; Z53.29 Procedure and treatment not carried out because of patient's decision for other reasons
CPT/HCPCS: 36415; 80053; 82088; 82340; 82533; 82570; 83735; 83930; 83935; 84100; 84133; 84244; 84300; 84443; 84550; 85025; 87591; 93005; 96374; 96375; A4217; J2405; J3475; J3480; J7120

== ENCOUNTER 2025-11-06 18:45 | Inpatient (IN) | payer MEDICARE, MEDICAID ==
[2025-11-06 20:08] LABS: Acetaminophen Less than 10 mcg/mL (Less than 10); Salicylate Less than 8.0 mg/dL (Less than 8.0)
[2025-11-06 20:15] LABS: ALT (SGPT) 34 U/L (Less than 45); AST (SGOT) 114 U/L (11-34); Albumin 3.9 g/dL (3.1-4.5); Alkaline Phosphatase 58 U/L (40-110); Anion Gap 21 mmol/L (10-20); BUN (Urea Nitrogen) 30 mg/dL (8.4-25.7); Bilirubin, Total 1.8 mg/dL (0.3-1.2); Calc. Creatinine Clearance 0 mL/min (70-130); Calcium 8.6 mg/dL (7.8-10.44); Carbon Dioxide 30 mmol/L (23-31); Chloride 56 mmol/L (98-107); Globulin 2.5 g/dL (2.4-3.5); Glucose 128 mg/dL (80-115); Potassium 2.2 mmol/L (3.5-5.1); Sodium 105 mmol/L (136-145)
[2025-11-06 21:25] LABS: ALT (SGPT) 38 U/L (Less than 45); AST (SGOT) 145 U/L (11-34); Albumin 4.0 g/dL (3.1-4.5); Alkaline Phosphatase 58 U/L (40-110); Anion Gap 19 mmol/L (10-20); BUN (Urea Nitrogen) 30 mg/dL (8.4-25.7); Bilirubin, Total 1.8 mg/dL (0.3-1.2); Calc. Creatinine Clearance 0 mL/min (70-130); Calcium 8.7 mg/dL (7.8-10.44); Carbon Dioxide 33 mmol/L (23-31); Chloride 56 mmol/L (98-107); Globulin 2.8 g/dL (2.4-3.5); Glucose 103 mg/dL (80-115); Magnesium 2.2 mg/dL (1.6-2.6); Potassium 2.7 mmol/L (3.5-5.1); Sodium 105 mmol/L (136-145)
[2025-11-06] MEDS ORDERED: Potassium Chloride 20 MEQ (100 mL) BAG ONE (21:49)
[2025-11-06] MEDS ORDERED: Guaifenesin DM 100-10/5 ML UDCUP PO PRN (22:22)
[2025-11-06] MEDS ORDERED: Calcium Carbonate 500 MG ChewTAB PO PRN (22:22)
[2025-11-06 22:31] LABS: Hematocrit 35.0 % (42.0-52.0); Mean Corpuscular Volume 85.6 fL (78.0-98.0); Platelet Count 221 10x3/uL (130-400); Red Blood Cell (RBC) Count 4.09 mill/uL (4.70-6.10); White Blood Cell (WBC) Count 21.50 10x3/uL (4.8-10.8)
[2025-11-06] MEDS ORDERED: hydrALAZINE 20 MG/ML VIAL ONE (22:32)
[2025-11-06 22:38] LABS: Platelet Adequacy Comment Platelets Normal; RBC Morphology Within Normal Limits; Smudge Cells 5.2 %
[2025-11-07 00:17] LABS: Anion Gap 18 mmol/L (10-20); BUN (Urea Nitrogen) 30 mg/dL (8.4-25.7); Calc. Creatinine Clearance 0 mL/min (70-130); Calcium 8.7 mg/dL (7.8-10.44); Carbon Dioxide 31 mmol/L (23-31); Chloride 59 mmol/L (98-107); Glucose 107 mg/dL (80-115); Potassium 2.5 mmol/L (3.5-5.1); Sodium 105 mmol/L (136-145)
[2025-11-07 00:23] LABS: Bacteria/HPF None Seen HPF (None Seen); CAUTI Indications for Culture Alt mental st,lethar; Glucose, Urine (Dipstick) Normal (Negative); Leukocyte Negative Leu/uL (Negative); Protein, Urine (Dipstick) 10 mg/dL (Neg-Trace); RBC/HPF None Seen HPF (0-3); Specific Gravity, Urine 1.020 (1.002-1.036); WBC/HPF None Seen HPF (0-3)
[2025-11-07 00:24] LABS: Urine Culture Reflex No No
[2025-11-07 00:31] LABS: Cocaine Metabolite Screen PRELIM POSITIVE (Negative); THC/Cannabinoid Screen Negative (Negative); Tricyclic Screen Negative (Negative)
[2025-11-07] MEDS: Potassium Bicarbonate/Cit Ac 20 MEQ TAB PO SCH (01:46)
[2025-11-07] MEDS ORDERED: Potassium Bicarbonate/Cit Ac 20 MEQ TAB ONE (02:03)
[2025-11-07] MEDS ORDERED: Acetaminophen 325 MG TAB ONE (02:32)
[2025-11-07] MEDS: Acetaminophen 325 MG TAB PO PRN (02:38)
[2025-11-07 02:45] LABS: Anion Gap 18 mmol/L (10-20); BUN (Urea Nitrogen) 27 mg/dL (8.4-25.7); Calc. Creatinine Clearance 0 mL/min (70-130); Calcium 8.4 mg/dL (7.8-10.44); Carbon Dioxide 28 mmol/L (23-31); Chloride 63 mmol/L (98-107); Glucose 105 mg/dL (80-115); Potassium 2.2 mmol/L (3.5-5.1); Sodium 107 mmol/L (136-145)
[2025-11-07 04:09] VITALS: BMI 28.0
[2025-11-07 06:41] LABS: #Basophils Less than 0.03 10x3/uL (0.0-0.2); #Eosinophils Less than 0.03 10x3/uL (0.0-0.7); #Monocytes 2.52 10x3/uL (0.11-0.59); #Neutrophils 13.04 10x3/uL (1.40-6.50); %Basophils 0.1 % (0.0-1.0); %Eosinophils 0.1 % (0.0-10.0); %Lymphocytes 3.8 % (21.0-51.0); %Monocytes 15.4 % (0.0-10.0); %Neutrophils 79.7 % (42.0-75.0); Hematocrit 36.7 % (42.0-52.0); Mean Corpuscular Volume 87.2 fL (78.0-98.0); Platelet Count 240 10x3/uL (130-400); Red Blood Cell (RBC) Count 4.21 mill/uL (4.70-6.10); White Blood Cell (WBC) Count 16.38 10x3/uL (4.8-10.8)
[2025-11-07 06:49] LABS: Osmolality, Serum 233 mOsm/kg (280-301)
[2025-11-07 07:01] LABS: Anion Gap 11 mmol/L (10-20); BUN (Urea Nitrogen) 27 mg/dL (8.4-25.7); Calc. Creatinine Clearance 103 mL/min (70-130); Calcium 8.5 mg/dL (7.8-10.44); Carbon Dioxide 32 mmol/L (23-31); Chloride 68 mmol/L (98-107); Glucose 105 mg/dL (80-115); Potassium 2.5 mmol/L (3.5-5.1); Sodium 108 mmol/L (136-145)
[2025-11-07] MEDS: Enoxaparin 40 MG (0.4 mL) SYRINGE SC SCH (07:27)
[2025-11-07] MEDS: Pantoprazole 40 MG DR.TAB PO SCH (07:27)
[2025-11-07] MEDS: Mupirocin 1 GM TUBE NASAL DECOLONIZATION NASAL SCH (07:27)
[2025-11-07] MEDS ORDERED: Magnesium Sulfate In Water 4 GM in Premix 1 BAG IVPB PRN (07:45)
[2025-11-07] MEDS ORDERED: PHOS-NAK 1 PKT PACK PO PRN (07:45)
[2025-11-07] MEDS: Potassium Chloride 20 MEQ in Premix 1 BAG IVPB SCH ×2 (07:51→13:00)
[2025-11-07] MEDS: Electrolyte Replacement Protocol 1 EACH FS ONE (07:52)
[2025-11-07] MEDS ORDERED: Dolutegravir/Rilpivirine [Juluca 50-25 Mg Tablet] PO SCH (09:00)
[2025-11-07] MEDS ORDERED: Darunavir/Cobicistat [Prezcobix 800 Mg-150 Mg Tablet] PO SCH (09:00)
[2025-11-07] MEDS: Gabapentin 400 MG CAP PO SCH ×3 (10:56→21:34)
[2025-11-07 12:15] LABS: Anion Gap 18 mmol/L (10-20); BUN (Urea Nitrogen) 24 mg/dL (8.4-25.7); Calc. Creatinine Clearance 124 mL/min (70-130); Calcium 8.3 mg/dL (7.8-10.44); Carbon Dioxide 29 mmol/L (23-31); Chloride 69 mmol/L (98-107); Glucose 101 mg/dL (80-115); Potassium 2.2 mmol/L (3.5-5.1); Sodium 114 mmol/L (136-145)
[2025-11-07 12:19] LABS: Osmolality, Urine 558 mOsm/kg (50-1200)
[2025-11-07 16:01] LABS: Anion Gap 16 mmol/L (10-20); BUN (Urea Nitrogen) 23 mg/dL (8.4-25.7); Calc. Creatinine Clearance 122 mL/min (70-130); Calcium 8.5 mg/dL (7.8-10.44); Carbon Dioxide 26 mmol/L (23-31); Chloride 74 mmol/L (98-107); Glucose 93 mg/dL (80-115); Potassium 2.7 mmol/L (3.5-5.1); Sodium 113 mmol/L (136-145)
[2025-11-07] MEDS: Potassium Chloride 20 MEQ in Premix 1 BAG IVPB PRN (17:02)
[2025-11-07 19:02] LABS: Anion Gap 13 mmol/L (10-20); BUN (Urea Nitrogen) 23 mg/dL (8.4-25.7); Calc. Creatinine Clearance 128 mL/min (70-130); Calcium 8.3 mg/dL (7.8-10.44); Carbon Dioxide 32 mmol/L (23-31); Chloride 73 mmol/L (98-107); Glucose 96 mg/dL (80-115); Potassium 2.9 mmol/L (3.5-5.1); Sodium 115 mmol/L (136-145)
[2025-11-07 22:13] LABS: Anion Gap 13 mmol/L (10-20); BUN (Urea Nitrogen) 23 mg/dL (8.4-25.7); Calc. Creatinine Clearance 124 mL/min (70-130); Calcium 8.2 mg/dL (7.8-10.44); Carbon Dioxide 30 mmol/L (23-31); Chloride 74 mmol/L (98-107); Glucose 91 mg/dL (80-115); Potassium 3.0 mmol/L (3.5-5.1); Sodium 114 mmol/L (136-145)
[2025-11-08 01:44] LABS: Anion Gap 13 mmol/L (10-20); BUN (Urea Nitrogen) 22 mg/dL (8.4-25.7); Calc. Creatinine Clearance 139 mL/min (70-130); Calcium 8.4 mg/dL (7.8-10.44); Carbon Dioxide 31 mmol/L (23-31); Chloride 75 mmol/L (98-107); Glucose 92 mg/dL (80-115); Potassium 3.2 mmol/L (3.5-5.1); Sodium 116 mmol/L (136-145)
[2025-11-08] MEDS: Ondansetron PF 4 MG/2 ML Vial IVP PRN (05:32)
[2025-11-08 05:58] LABS: Hematocrit 34.3 % (42.0-52.0); Hemoglobin 12.4 g/dL (14.0-18.0); Mean Corpuscular Hemoglobin 33.3 pg (27.0-31.0); Mean Corpuscular Volume 92.2 fL (78.0-98.0); Platelet Count 190 10x3/uL (130-400); Red Blood Cell (RBC) Count 3.72 mill/uL (4.70-6.10); White Blood Cell (WBC) Count 8.98 10x3/uL (4.8-10.8)
[2025-11-08 06:15] LABS: Anion Gap 14 mmol/L (10-20); BUN (Urea Nitrogen) 20 mg/dL (8.4-25.7); Calc. Creatinine Clearance 133 mL/min (70-130); Calcium 8.4 mg/dL (7.8-10.44); Carbon Dioxide 28 mmol/L (23-31); Chloride 76 mmol/L (98-107); Glucose 87 mg/dL (80-115); Potassium 3.3 mmol/L (3.5-5.1); Sodium 115 mmol/L (136-145)
[2025-11-08 06:37] LABS: Anisocytosis SLIGHT = 6-15 cells HPF (0-5); Burr Cells SLIGHT = 2-5 cells HPF (0-1); Macrocytosis SLIGHT = 6-15 cells HPF (0-5); Platelet Adequacy Comment Platelets Normal; Polychromasia SLIGHT = 2-3 cells HPF (0-2); Smudge Cells 10.9 %
[2025-11-08 09:12] LABS: Anion Gap 15 mmol/L (10-20); BUN (Urea Nitrogen) 19 mg/dL (8.4-25.7); Calc. Creatinine Clearance 138 mL/min (70-130); Calcium 8.5 mg/dL (7.8-10.44); Carbon Dioxide 30 mmol/L (23-31); Chloride 75 mmol/L (98-107); Glucose 92 mg/dL (80-115); Potassium 3.7 mmol/L (3.5-5.1); Sodium 116 mmol/L (136-145)
[2025-11-08 14:04] LABS: Anion Gap 14 mmol/L (10-20); BUN (Urea Nitrogen) 21 mg/dL (8.4-25.7); Calc. Creatinine Clearance 128 mL/min (70-130); Calcium 8.4 mg/dL (7.8-10.44); Carbon Dioxide 27 mmol/L (23-31); Chloride 80 mmol/L (98-107); Glucose 84 mg/dL (80-115); Potassium 3.6 mmol/L (3.5-5.1); Sodium 117 mmol/L (136-145)
[2025-11-08 15:47] VITALS: BMI 27.6
[2025-11-08 16:15] LABS: Anion Gap 12 mmol/L (10-20); BUN (Urea Nitrogen) 21 mg/dL (8.4-25.7); Calc. Creatinine Clearance 122 mL/min (70-130); Calcium 8.3 mg/dL (7.8-10.44); Carbon Dioxide 26 mmol/L (23-31); Chloride 83 mmol/L (98-107); Glucose 83 mg/dL (80-115); Potassium 3.3 mmol/L (3.5-5.1); Sodium 118 mmol/L (136-145)
[2025-11-09 01:59] LABS: Anion Gap 13 mmol/L (10-20); Carbon Dioxide 30 mmol/L (23-31); Chloride 83 mmol/L (98-107); Potassium 3.4 mmol/L (3.5-5.1); Sodium 123 mmol/L (136-145)
[2025-11-09 02:00] LABS: BUN (Urea Nitrogen) 20 mg/dL (8.4-25.7); Calc. Creatinine Clearance 119 mL/min (70-130); Calcium 8.5 mg/dL (7.6-10.4); Glucose 85 mg/dL (80-115)
[2025-11-09 05:32] LABS: #Basophils 0.04 10x3/uL (0.0-0.2); #Eosinophils 0.10 10x3/uL (0.0-0.7); #Monocytes 1.15 10x3/uL (0.11-0.59); #Neutrophils 8.24 10x3/uL (1.40-6.50); %Basophils 0.4 % (0.0-1.0); %Eosinophils 1.0 % (0.0-10.0); %Lymphocytes 4.2 % (21.0-51.0); %Monocytes 11.5 % (0.0-10.0); %Neutrophils 82.2 % (42.0-75.0); Hematocrit 33.5 % (42.0-52.0); Hemoglobin 12.1 g/dL (14.0-18.0); Mean Corpuscular Hemoglobin 33.5 pg (27.0-31.0); Mean Corpuscular Volume 92.8 fL (78.0-98.0); Platelet Count 208 10x3/uL (130-400); Red Blood Cell (RBC) Count 3.61 mill/uL (4.70-6.10); White Blood Cell (WBC) Count 10.02 10x3/uL (4.8-10.8)
[2025-11-09 05:46] LABS: ALT (SGPT) 28 U/L (Less than 45); AST (SGOT) 42 U/L (11-34); Albumin 3.3 g/dL (3.1-4.5); Alkaline Phosphatase 55 U/L (40-110); Bilirubin, Direct 0.3 mg/dL (0.1-0.3); Bilirubin, Total 1.0 mg/dL (0.3-1.2)
[2025-11-09 07:13] LABS: Anion Gap 13 mmol/L (10-20); BUN (Urea Nitrogen) 21 mg/dL (8.4-25.7); Calc. Creatinine Clearance 128 mL/min (70-130); Calcium 8.4 mg/dL (7.8-10.44); Carbon Dioxide 26 mmol/L (23-31); Chloride 85 mmol/L (98-107); Glucose 82 mg/dL (80-115); Potassium 3.3 mmol/L (3.5-5.1); Sodium 121 mmol/L (136-145)
[2025-11-09 15:55] LABS: Anion Gap 14 mmol/L (10-20); BUN (Urea Nitrogen) 19 mg/dL (8.4-25.7); Calc. Creatinine Clearance 130 mL/min (70-130); Calcium 8.5 mg/dL (7.8-10.44); Carbon Dioxide 25 mmol/L (23-31); Chloride 88 mmol/L (98-107); Glucose 92 mg/dL (80-115); Potassium 3.7 mmol/L (3.5-5.1); Sodium 123 mmol/L (136-145)
[2025-11-10] MEDS: clonazePAM 0.5 MG TAB PO PRN (02:33)
[2025-11-10 06:48] LABS: Anion Gap 13 mmol/L (10-20); BUN (Urea Nitrogen) 18 mg/dL (8.4-25.7); Calc. Creatinine Clearance 126 mL/min (70-130); Calcium 8.5 mg/dL (7.8-10.44); Carbon Dioxide 27 mmol/L (23-31); Chloride 87 mmol/L (98-107); Glucose 101 mg/dL (80-115); Magnesium 1.7 mg/dL (1.6-2.6); Potassium 3.2 mmol/L (3.5-5.1); Sodium 124 mmol/L (136-145)
[2025-11-10 08:53] VITALS: BP 153/93; TEMP 99.1
== END 2025-11-10 11:53 | disposition left against medical advice (07) | DRG 643 ==
LOC: ERS 18:45 → ERHOLD 22:22 → CCU 11-07 03:45 → T4-A 11-08 11:15
PROVIDERS: ADMIT Internal Medicine; ATTEND Internal Medicine
DX: E22.2 Syndrome of inappropriate secretion of antidiuretic hormone (principal); G93.41 Metabolic encephalopathy; B20 Human immunodeficiency virus [HIV] disease; F14.20 Cocaine dependence, uncomplicated; E87.6 Hypokalemia; E78.5 Hyperlipidemia, unspecified; I10 Essential (primary) hypertension; F17.210 Nicotine dependence, cigarettes, uncomplicated; Z79.899 Other long term (current) drug therapy
CPT/HCPCS: 36415; 36416; 70450; 71045; 72125; 80048; 80053; 80076; 80306; 80307; 81001; 82140; 83735; 83930; 83935; 84100; 84300; 84443; 84484; 85025; 93005; 94760; 96365; 96366; J0360; J1650; J2405; J3480; J7131; Q0162